=== PATIENT | female | born 1960 | race Caucasian/White ===

== ENCOUNTER 2019-01-03 00:55 | Inpatient (IN) | payer MEDICARE, MEDICAID ==
[2019-01-03] VITALS (11 sets, daily range): BP systolic 100–144; BP diastolic 57–95
[~2019-01-03] VITALS: Ht 170 cm; Wt 67.9 kg
--- NOTE | 2019-01-03 01:27 | ED Fall/Injury ---
General Stated Complaint: FALL Source: patient, EMS Exam Limitations: no limitations History of Present Illness Date Seen by Provider: Jan 03, 2019 Time Seen by Provider: 00:53 Initial Comments Patient resents to ER from home by EMS with chief complaint she was using her walker to get to the bathroom indurated bed when she has to balance and fell. No dizziness or syncope. No loss of consciousness. She denies striking her head. She has obvious inflammation of her right femur was put into a splint which controlled her pain by EMS. She has a history of right breast cancer 13 years ago and recently had left mastectomy for breast cancer and is on chemotherapy. She takes Plavix. Attend with [facility] and Dr. Polanco, oncology. Allergies and Home Medications Allergies Coded Allergies: No Known Drug Allergies (Unverified , 01/03/19) Patient Home Medication List Home Medication List Reviewed: Yes Review of Systems Review of Systems Constitutional: No chills, No diaphoresis Eyes: Denies Blindness, Denies Drainage Ears, Nose, Mouth, Throat: denies ear pain, denies ear discharge Respiratory: No cough, No short of breath Cardiovascular: No chest pain, No edema Gastrointestinal: No abdominal pain, No constipation, No diarrhea Genitourinary: No discharge, No dysuria Musculoskeletal: see HPI; No back pain Past Mtimpcn-Dtajgl-Dugfjd Hx Patient Social History Alcohol Use: Denies Use Recreational Drug Use: No Smoking Status: Current Everyday Smoker Type Used: Cigarettes Physical Exam Vital Signs Vital Signs - First Documented 01/03/19 00:55 Temp 35.3 Pulse 74 Resp 18 B/P (MAP) 122/91 (101) Capillary Refill : Height, Weight, BMI Height: '" Weight: lbs. oz. kg; BMI Method: General Appearance: moderate distress, thin HEENT: PERRL/EOMI, normal ENT inspection, TMs normal, pharynx normal Neck: non-tender, full range of motion, supple, normal inspection Cardiovascular: normal peripheral pulses, regular rate, rhythm, no edema Respiratory: lungs clear, normal breath sounds, no respiratory distress, no accessory muscle use Peripheral Pulses: 2+ Dorsalis Pedis (R), 2+ Left Dors-Pedis (L), 2+ Radial Pulses (R), 2+ Radial Pulses (L) Gastrointestinal: normal bowel sounds, non tender, soft Extremities: no pedal edema, normal capillary refill, other (traction device in place. Deformity palpable along the proximal shaft of the right femur) Neurologic/Psychiatric: alert, oriented x 3 Skin: normal color, warm/dry, ecchymosis (hematoma over the right elbow) Nader Coma Score Best Eye Response: (4) Open Spontaneously Best Verbal Response: (5) Oriented Best Motor Response: (6) Obeys Commands Nader Total: 15 Progress/Results/Core Measures Results/Orders Lab Results Laboratory Tests Test 01/03/19 01:00 01/03/19 03:15 Range/Units White Blood Count 3.6 L 4.3-11.0 10^3/uL Red Blood Count 3.71 L 4.35-5.85 10^6/uL Hemoglobin 12.1 11.5-16.0 G/DL Hematocrit 35 35-52 % Mean Corpuscular Volume 94 80-99 FL Mean Corpuscular Hemoglobin 33 25-34 PG Mean Corpuscular Hemoglobin Concent 35 32-36 G/DL Red Cell Distribution Width 16.9 H 10.0-14.5 % Platelet Count 179 130-400 10^3/uL Mean Platelet Volume 10.2 7.4-10.4 FL Neutrophils (%) (Auto) 27 L 42-75 % Lymphocytes (%) (Auto) 42 12-44 % Monocytes (%) (Auto) 26 H 0-12 % Eosinophils (%) (Auto) 2 0-10 % Basophils (%) (Auto) 3 0-10 % Neutrophils # (Auto) 1.0 L 1.8-7.8 X 10^3 Lymphocytes # (Auto) 1.5 1.0-4.0 X 10^3 Monocytes # (Auto) 0.9 0.0-1.0 X 10^3 Eosinophils # (Auto) 0.1 0.0-0.3 10^3/uL Basophils # (Auto) 0.1 0.0-0.1 10^3/uL Sodium Level 128 L 135-145 MMOL/L Potassium Level 4.4 3.6-5.0 MMOL/L Chloride Level 92 L 98-107 MMOL/L Carbon Dioxide Level 22 21-32 MMOL/L Anion Gap 14 5-14 MMOL/L Blood Urea Nitrogen 7 7-18 MG/DL Creatinine 0.61 0.60-1.30 MG/DL Estimat Glomerular Filtration Rate > 60 BUN/Creatinine Ratio 11 Glucose Level 86 70-105 MG/DL Calcium Level 8.9 8.5-10.1 MG/DL Corrected Calcium 8.6 8.5-10.1 MG/DL Total Bilirubin 0.2 0.1-1.0 MG/DL Aspartate Amino Transf (AST/SGOT) 41 H 5-34 U/L Alanine Aminotransferase (ALT/SGPT) 18 0-55 U/L Alkaline Phosphatase 79 40-136 U/L Total Protein 8.0 6.4-8.2 GM/DL Albumin 4.4 3.2-4.5 GM/DL Urine Color YELLOW Urine Clarity CLEAR Urine pH 5 5-9 Urine Specific [employer] 1.010 L 1.016-1.022 Urine Protein NEGATIVE NEGATIVE Urine Glucose (UA) NEGATIVE NEGATIVE Urine Ketones NEGATIVE NEGATIVE Urine Nitrite NEGATIVE NEGATIVE Urine Bilirubin NEGATIVE NEGATIVE Urine Urobilinogen NORMAL NORMAL MG/DL Urine Leukocyte Esterase NEGATIVE NEGATIVE Urine RBC (Auto) NEGATIVE NEGATIVE Urine RBC NONE /HPF Urine WBC NONE /HPF Urine Squamous Epithelial Cells NONE /HPF Urine Crystals NONE /LPF Urine Bacteria TRACE /HPF Urine Casts NONE /LPF Urine Mucus NEGATIVE /LPF Urine Culture Indicated NO My Orders Orders - SRIDHAR [place] Fentanyl Injection (Sublimaze Injection (01/03/19 01:30) Elbow, Right, 3 Views (01/03/19 01:19) Pelvis With Right Hip 2-3views (01/03/19 01:19) Ct Head/Cervical Spine Wo (01/03/19 01:19) Chest 1 View, Ap/Pa Only (01/03/19 01:19) Cbc With Automated Diff (01/03/19 01:19) Comprehensive Metabolic Panel (01/03/19 01:19) Ua Culture If Indicated (01/03/19 01:27) Catheter(Urinary) Insert & Ass 03,15 (01/03/19 01:27) Manual Differential (01/03/19 01:00) Ed Iv/Invasive Line Start (01/03/19 02:07) Ns Iv 1000 Ml (Sodium Chloride 0.9%) (01/03/19 02:07) Fentanyl Injection (Sublimaze Injection (01/03/19 03:45) Fentanyl Injection (Sublimaze Injection (01/03/19 03:43) Lactated Ringers (Lr 1000 Ml Iv Solution (01/03/19 04:15) Medications Given in ED Current Medications Medications Dose Ordered Sig/Michael Route Start Time Stop Time Status Last Admin Dose Admin Fentanyl Citrate 50 mcg ONCE ONCE IVP 01/03/19 01:30 01/03/19 01:32 DC 01/03/19 01:46 50 MCG Fentanyl Citrate 100 mcg ONCE ONCE IVP 01/03/19 03:45 01/03/19 03:46 DC 01/03/19 03:45 100 MCG Vital Signs/I&O 01/03/19 00:55 Temp 35.3 Pulse 74 Resp 18 B/P (MAP) 122/91 (101) Progress Progress Note : Time: 01:27 Progress Note Right hip x-ray, chest x-ray, EKG, blood work, urinalysis and 50 my grams of fentanyl for pain. CT of the head and neck. Initial ECG Impression Date: Jan 03, 2019 Diagnostic Imaging Diagonstic Imaging: CT Plain Films/CT/US/NM/MRI: c-spine, head Comments Cervical spondylosis without cervical fracture. No evidence of skull fracture or intracranial hemorrhage. Reviewed: Reviewed Night Vadim Study, Reviewed by Me Diagonstic Imaging: Xray Plain Films/CT/US/NM/MRI: chest (1v) Comments No acute osseous abnormality or acute cardiopulmonary process. Reviewed: Reviewed by Me Diagonstic Imaging: Xray Plain Films/CT/US/NM/MRI: pelvis, hip (r) Comments Comminuted mostly reapposed fracture of the proximal femoral shaft. Closed. Reviewed: Reviewed by Me Departure Communication (Admissions) Time/Spoke to Admitting Phy: 04:04 Discussed case lab imaging findings with Dr. Hess. She agrees to admit the patient. Time/Spoke to Consulting Phy: 03:45 Dr. Metcalf agrees to see the patient in the morning. He like her nothing by mouth. Admit to medicine. Impression Primary Impression: Fall Qualified Codes: W19.XXXA - Unspecified fall, initial encounter Additional Impression: Closed right femoral fracture Qualified Codes: S72.354A - Nondisplaced comminuted fracture of shaft of right femur, initial encounter for closed fracture Disposition: ADMITTED INPATIENT Condition: Stable Admissions Decision to Admit Reason: Admit from ER (General) Decision to Admit/Date: Jan 03, 2019 Time/Decision to Admit Time: 03:30 Departure-Patient Inst. Referrals: NO,LOCAL PHYSICIAN (PCP) Primary Care Physician SRIDHAR [place] Jan 03, 2019 01:27
[2019-01-03] MEDS ORDERED: fentaNYL INJECTION 100 MCG/2 ML AMP IVP ONE ×3 (01:30→17:30)
[2019-01-03 01:37] LABS: BASOPHILS # (AUTO) 0.1 10^3/uL (0.0-0.1); BASOPHILS % (AUTO) 3 % (0-10); EOSINOPHILS # (AUTO) 0.1 10^3/uL (0.0-0.3); EOSINOPHILS % (AUTO) 2 % (0-10); HEMATOCRIT 35 % (35-52); HEMOGLOBIN 12.1 G/DL (11.5-16.0); LYMPHOCYTES # (AUTO) 1.5 X 10^3 (1.0-4.0); LYMPHOCYTES % (AUTO) 42 % (12-44); MEAN CORPUSCULAR HEMOGLOBIN 33 PG (25-34); MEAN CORPUSCULAR HGB CONC 35 G/DL (32-36); MEAN CORPUSCULAR VOLUME 94 FL (80-99); MEAN PLATELET VOLUME 10.2 FL (7.4-10.4); MONOCYTES # (AUTO) 0.9 X 10^3 (0.0-1.0); MONOCYTES % (AUTO) 26 % (0-12); NEUTROPHILS % (AUTO) 27 % (42-75); PLATELET COUNT 179 10^3/uL (130-400); RED CELL DISTRIBUTION WIDTH 16.9 % (10.0-14.5); WHITE BLOOD COUNT 3.6 10^3/uL (4.3-11.0)
[2019-01-03 01:56] LABS: ALANINE AMINOTRANSFERASE 18 U/L (0-55); ALBUMIN 4.4 GM/DL (3.2-4.5); ALKALINE PHOSPHATASE 79 U/L (40-136); BILIRUBIN,TOTAL 0.2 MG/DL (0.1-1.0); BUN/CREATININE RATIO 11; CALCIUM 8.9 MG/DL (8.5-10.1); CARBON DIOXIDE 22 MMOL/L (21-32); CHLORIDE 92 MMOL/L (98-107); CREATININE SERUM 0.61 MG/DL (0.60-1.30); GFR ESTIMATED > 60; GLUCOSE 86 MG/DL (70-105); POTASSIUM 4.4 MMOL/L (3.6-5.0); SODIUM 128 MMOL/L (135-145)
[2019-01-03] MEDS ORDERED: NS IV 1000 ML 1,000 ML IV SCH (02:07)
[2019-01-03 03:24] LABS: BILIRUBIN,URINE NEGATIVE (NEGATIVE); CLARITY,URINE CLEAR; COLOR,URINE YELLOW; GLUCOSE, URINE (UA) NEGATIVE (NEGATIVE); KETONES,URINE NEGATIVE (NEGATIVE); LEUKOCYTE ESTERASE ,URINE NEGATIVE (NEGATIVE); NITRITE,URINE NEGATIVE (NEGATIVE); PH,URINE 5 (5-9); PROTEIN,URINE NEGATIVE (NEGATIVE); UROBILINOGEN,URINE NORMAL (NORMAL)
[2019-01-03 03:34] LABS: BACTERIA,URINE TRACE /HPF
[2019-01-03] MEDS ORDERED: fentaNYL INJECTION 100 MCG/2 ML AMP ONE ×2 (03:43→15:07)
[2019-01-03] MEDS ORDERED: LACTATED RINGERS 1,000 ML IV SCH (04:15)
[2019-01-03 04:43] LABS: BLAST CELLS 1 %; LYMPHOCYTES % (MANUAL) 43 %; MONOCYTES % (MANUAL) 27 %; NEUTROPHILS % (MANUAL) 30 %
--- NOTE | 2019-01-03 05:08 | NUR ---
"TOÑO VILLA admitted to room 408-1, with an admitting diagnosis of FALL|RIGHT FEMUR FRACTURE|HX L BREAST CA ON CHEMO, on 01/03/19 from ED via STRETCHER, accompanied by ED STAFF AND FAMILY MEMBER.TOÑO VILLA introduced to surroundings, call light, bed controls, phone, TV, temperature control, lights, meal times, smoking policy, visitor policy, side rail policy, bathrooms and showers. Patient Rights given to patient in the handbook.TOÑO VILLA verbalizes understanding that [facility] is not responsible for the loss or damage to any personal effects or valuables that are kept in the patients posession during their hospitalization."
[2019-01-03] MEDS ORDERED: fentaNYL INJECTION 100 MCG/2 ML AMP IV PRN (05:30)
[2019-01-03] MEDS ORDERED: ONDANSETRON 4 MG/2 ML (SDV) Z0FRAN IV PRN (05:30)
[2019-01-03] MEDS: fentaNYL INJECTION 100 MCG/2 ML AMP IV PRN ×4 (05:48→13:25)
[2019-01-03] MEDS: LACTATED RINGERS 1,000 ML IV SCH ×2 (05:49→18:47)
--- NOTE | 2019-01-03 06:46 | Diagnostic Imaging Report ---
PROCEDURE: CT head and CT cervical spine without contrast. TECHNIQUE: Multiple contiguous axial images were obtained through the brain and cervical spine without the use of intravenous contrast. Sagittal and coronal reformations through the cervical spine were then performed. Auto Exposure Controls were utilized during the CT exam to meet ALARA standards for radiation dose reduction. INDICATION: Fall, pain. FINDINGS: CT head: No abnormal extra-axial fluid collections, there is no intracerebral hemorrhage. No focal or generalized cerebral edema. No evidence for an elevation of the intracerebral pressures. No mass or mass effect. No sulcal effacement. No paranasal sinus air-fluid level. CT cervical spine: Degenerative changes to the discs, endplates and facets at the mid to lower cervical levels present, chronic. No listhesis or fracture. The vertebral statures unremarkable. No acute endplate irregularity. There are substantial atherosclerotic vascular calcifications of the visualized carotids and biapical interstitial disease of uncertain acuity. IMPRESSION: 1. CT head: No hemorrhage or fracture deformity. No acute-appearing abnormality. 2. CT cervical spine: Degenerative changes without fracture or traumatic malalignment. Extensive carotid atherosclerotic vascular calcifications and some biapical interstitial thickening in the visualized upper lobes. Dictated by: Dictated on workstation # [id number]
--- NOTE | 2019-01-03 07:12 | Diagnostic Imaging Report ---
INDICATION: Pain after a fall. EXAMINATION: Right elbow, 01/03/2019. FINDINGS: 3 views of the elbow. There is marked osteopenia. Nondisplaced fracture line could be difficult to visualize due to the osteopenia. No displaced fractures are seen. There are no dislocations. No significant joint effusion is seen. Nonspecific density adjacent just proximal to the lateral epicondyle likely focal spurring. IMPRESSION: 1. Chronic findings and osteopenia as above. No acute fractures identified. If pain persists, followup recommended. Dictated by: Dictated on workstation # [id number]
--- NOTE | 2019-01-03 07:26 | Diagnostic Imaging Report ---
INDICATION: Fall, pain. FINDINGS: There are some old appearing healed rib deformities on the right. No convincing evidence for an acute chest wall fracture. Lung showed prominence of the interstitial markings and symmetric air trapping on a chronic basis. No failure, effusion or pneumothorax. No free air beneath the diaphragms. IMPRESSION: No acute appearing chest pathology. Dictated by: Dictated on workstation # [id number]
--- NOTE | 2019-01-03 07:31 | Diagnostic Imaging Report ---
INDICATION: Fall. Headache with neck pain. Right leg pain EXAMINATION: Right hip dated 01/03/2019. findings: 3 views of the right hip. The hip joint space is somewhat obscured by overlying metallic object. No henrik dislocation is appreciated. There is an oblique fracture of the mid to proximal one third of the right femoral diaphysis. There is lateral displacement of the distal fracture fragment in relation to the proximal femur. The displacement is at least 1.4 cm. The hip joint space appears grossly unremarkable. There is atherosclerotic disease noted. There is nonspecific hyperdensity in the region of the lesser trochanter. Underlying bone lesion including a metastatic process is not excluded. Left hip is grossly intact. IMPRESSION: 1. Displaced fracture of the right femur as described. The entire distal fracture site is not included on this examination therefore limiting evaluation. 2. Sclerotic lesion is suspected in the region of the lesser trochanter with a metastatic process not excluded. Further imaging may be warranted. Dictated by: Dictated on workstation # [id number]
[2019-01-03] MEDS: PANTOPRAZOLE 40 MG (PROTONIX) VIAL IV SCH (08:19)
[2019-01-03] MEDS ORDERED: LACTATED RINGERS 1,000 ML IV PRN (10:09)
[2019-01-03] MEDS ORDERED: RT-ALBUTEROL SULF 2.5 MG/3 ML PRE-MIX VIAL INH ONE (10:15)
[2019-01-03] MEDS ORDERED: PALB125C PO (10:56)
[2019-01-03] MEDS ORDERED: LEVE500T6 PO (10:56)
[2019-01-03] MEDS ORDERED: NF-NACL1GT PO (10:56)
[2019-01-03] MEDS ORDERED: MELA5CAP PO (10:56)
[2019-01-03] MEDS ORDERED: MV-M1TAB57 PO (10:56)
[2019-01-03] MEDS ORDERED: CLOP75TA28 PO (10:56)
[2019-01-03] MEDS ORDERED: FULV250D2 IM (10:56)
[2019-01-03] MEDS ORDERED: ASPI-983 PO (10:56)
[2019-01-03] MEDS ORDERED: PEDI18TA2 PO (10:56)
[2019-01-03] MEDS ORDERED: FURO20TA4 PO (10:56)
--- NOTE | 2019-01-03 10:57 | NUR ---
PATIENT HAD A LIST OF HER MEDICATIONS IN HER WALLET. SHE VERIFIED HOW SHE TAKES THEM. I COMPARED THE PRESCRIPTION MEDICATION WITH THE EXT MED HX. SHE STATES HER IBRANCE IS ON HOLD RIGHT NOW UNTIL SHE IS TOLD OTHERWISE AFTER BLOOD WORK.
--- NOTE | 2019-01-03 12:26 | History & Physical ---
DEBORAH CISNEROS, 01/03/19 1226: HPI History of Present Illness: CC: R leg pain HPI: Pt was walking into her apartment and fell. Denies an event that made her fall or tripping over anything. She does state she has bone metastasis from breast cancer in her leg. Rates her pain 10/10 on R leg. Ache radiates into her R hip. Pain meds help a bit. Also states she hit elbow, but denies hitting head. Surgery for femur fracture will be today at 5pm. Son is DPOA. Source: patient Exam Limitations: no limitations Date seen by provider: Jan 03, 2019 Time Seen by Provider: 08:02 Attending Physician Keeley Fleming MD PCP No,Local Physician Consult Date of Admission Jan 03, 2019 at 04:15 Home Medications Home Medications Reviewed patient Home Medication Reconciliation performed by pharmacy medication reconciliations photographic technician and/or nursing. Patients Allergies have been reviewed. Allergies Coded Allergies: No Known Drug Allergies (Unverified , 01/03/19) [id number] Hx Patient Social History Alcohol Use: Regular Use (2-3 cans of beer nightly) Recreational Drug Use: No Smoking Status: Current Everyday Smoker Type Used: Cigarettes Recent Foreign Travel: No Contact w/other who traveled: No Recent Hopitalizations: No Recent Infectious Disease Expo: No Physical Abuse Screen: No Sexual Abuse: No Past Medical History PMHx: 1. Oral cancer 2. Breast cancer 3. Hx of TIA after chemotherapy 4. CKD PSHx: 1. R mastectomy 13 years ago 2. L mastectomy in 2016 3. L cervical rib 4. Tubal ligation 5. Cyst removal on back Family Medical History Significant Family History: Heart Disease (almost everyone has hypercholesterolemia), Cancer (sister had oral cancer 13 years ago), Hypertension (almost everyone in family), Other Conditions/Hx (mother had Parkinson's) Review of Systems ([facility]) Constitutional: No chills, No fever, No weight gain, No weight loss EENTM: No hearing loss, No vision loss, No throat pain Respiratory: No cough, No short of breath Cardiovascular: No chest pain, No palpitations Gastrointestinal: No abdominal pain; dysphagia (from oral cancer tx); No nausea, No vomiting Genitourinary: No dysuria, No frequency, No hematuria Musculoskeletal: No back pain, No joint pain, No muscle stiffness; other (sore from laying in bed) Skin: No lesions, No rash Psychiatric/Neurological: Denies Anxiety, Denies Depressed, Denies Numbness, Denies Tingling Physical Exam-([facility]) Physical Exam Vital Signs VS - Last 72 Hours, by Label 01/03/19 01/03/19 01/03/19 01/03/19 00:55 04:00 04:51 05:08 Temp 35.3 35.3 Pulse 74 73 Resp 18 19 B/P (MAP) 122/91 (101) 100/75 (101) Pulse Ox 100 100 O2 Delivery Nasal Cannula Nasal Cannula Nasal Cannula O2 Flow Rate 2.00 2.00 2.00 01/03/19 01/03/19 01/03/19 06:20 07:35 08:00 Temp 36.3 Pulse 80 73 Resp 18 16 B/P (MAP) 109/65 100/57 (71) Pulse Ox 98 98 98 O2 Delivery Nasal Cannula Room Air Room Air O2 Flow Rate 2.00 Capillary Refill : Less Than 3 SecondsLess Than 3 Seconds General Appearance: WD/WN, no apparent distress Eyes: Bilateral Eye Normal Inspection, Bilateral Eye EOMI HEENT: pharynx normal; No pale conjunctivae (R), No pale conjunctivae (L) Neck: non-tender, supple Respiratory: chest non-tender, crackles Cardiovascular: regular rate, rhythm, no murmur Gastrointestinal: normal bowel sounds, non tender Extremities: normal inspection, no pedal edema Neurologic/Psychiatric: alert, oriented x 3 Skin: normal color, warm/dry, other (large bruise on R elbow) Lymphatic: no adenopathy Assessment/Plan Assessment/Plan Assessment & Plan Assessment: 1. Right femur fracture 2. DVT risk 3. Hx of TIA Plan: 1. Surgery at 5pm tonight. Control pain with IV pain medications. Keep pt NPO. Allow pt to use oral swabs to keep mouth damp. 2. Postoperative anticoagulation 3. Home medications restarted postoperatively Clinical Quality Measures DVT/VTE Risk/Contraindication: Risk Factor Score Per Nursin RFS Level Per Nursing on Admit: 4+=Very High KEELEY FLEMING MD 01/03/19 1725: HPI History of Present Illness: Date seen by provider: Jan 03, 2019 Time Seen by Provider: 10:28 Home Medications Allergies Coded Allergies: No Known Drug Allergies (Unverified , 9/30/19) Reviewed Test Results Reviewed Test Results Lab Laboratory Tests Test 01/03/19 01:00 01/03/19 03:15 Range/Units White Blood Count 3.6 L 4.3-11.0 10^3/uL Red Blood Count 3.71 L 4.35-5.85 10^6/uL Hemoglobin 12.1 11.5-16.0 G/DL Hematocrit 35 35-52 % Mean Corpuscular Volume 94 80-99 FL Mean Corpuscular Hemoglobin 33 25-34 PG Mean Corpuscular Hemoglobin Concent 35 32-36 G/DL Red Cell Distribution Width 16.9 H 10.0-14.5 % Platelet Count 179 130-400 10^3/uL Mean Platelet Volume 10.2 7.4-10.4 FL Neutrophils (%) (Auto) 27 L 42-75 % Lymphocytes (%) (Auto) 42 12-44 % Monocytes (%) (Auto) 26 H 0-12 % Eosinophils (%) (Auto) 2 0-10 % Basophils (%) (Auto) 3 0-10 % Neutrophils # (Auto) 1.0 L 1.8-7.8 X 10^3 Lymphocytes # (Auto) 1.5 1.0-4.0 X 10^3 Monocytes # (Auto) 0.9 0.0-1.0 X 10^3 Eosinophils # (Auto) 0.1 0.0-0.3 10^3/uL Basophils # (Auto) 0.1 0.0-0.1 10^3/uL Neutrophils % (Manual) 30 % Lymphocytes % (Manual) 43 % Monocytes % (Manual) 27 % Blast Cells 1 % Sodium Level 128 L 135-145 MMOL/L Potassium Level 4.4 3.6-5.0 MMOL/L Chloride Level 92 L 98-107 MMOL/L Carbon Dioxide Level 22 21-32 MMOL/L Anion Gap 14 5-14 MMOL/L Blood Urea Nitrogen 7 7-18 MG/DL Creatinine 0.61 0.60-1.30 MG/DL Estimat Glomerular Filtration Rate > 60 BUN/Creatinine Ratio 11 Glucose Level 86 70-105 MG/DL Calcium Level 8.9 8.5-10.1 MG/DL Corrected Calcium 8.6 8.5-10.1 MG/DL Total Bilirubin 0.2 0.1-1.0 MG/DL Aspartate Amino Transf (AST/SGOT) 41 H 5-34 U/L Alanine Aminotransferase (ALT/SGPT) 18 0-55 U/L Alkaline Phosphatase 79 40-136 U/L Total Protein 8.0 6.4-8.2 GM/DL Albumin 4.4 3.2-4.5 GM/DL Urine Color YELLOW Urine Clarity CLEAR Urine pH 5 5-9 Urine Specific [place] 1.010 L 1.016-1.022 Urine Protein NEGATIVE NEGATIVE Urine Glucose (UA) NEGATIVE NEGATIVE Urine Ketones NEGATIVE NEGATIVE Urine Nitrite NEGATIVE NEGATIVE Urine Bilirubin NEGATIVE NEGATIVE Urine Urobilinogen NORMAL NORMAL MG/DL Urine Leukocyte Esterase NEGATIVE NEGATIVE Urine RBC (Auto) NEGATIVE NEGATIVE Urine RBC NONE /HPF Urine WBC NONE /HPF Urine Squamous Epithelial Cells NONE /HPF Urine Crystals NONE /LPF Urine Bacteria TRACE /HPF Urine Casts NONE /LPF Urine Mucus NEGATIVE /LPF Urine Culture Indicated NO Physical Exam-([facility]) Physical Exam General Appearance: WD/WN Eyes: Bilateral Eye Normal Inspection HEENT: pale conjunctivae (L) Respiratory: crackles Cardiovascular: regular rate, rhythm, no murmur Peripheral Pulses: 2+ Dorsalis Pedis (R), 2+ Left Dors-Pedis (L) Gastrointestinal: normal bowel sounds, non tender Extremities: no pedal edema, other (right leg in brace) Neurologic/Psychiatric: alert, normal mood/affect Skin: normal color, warm/dry Assessment/Plan Assessment/Plan Admission Status: Inpatient Order (span 2 midnights) Reason for Inpatient Admission: Fracture with underlying comorbidities, will require 2 nights or more for recovery. (1) Closed right femoral fracture Status: Acute Assessment & Plan: Pathologic fracture, history suggests fracture may have preceded fall. Ortho consulted, appreciate recommendations. Qualifiers: Qualified Codes: S72.354A - Nondisplaced comminuted fracture of shaft of right femur, initial encounter for closed fracture (2) Metastatic breast cancer Status: Chronic Assessment & Plan: Managed by Oncologist in [place], but she is working on transitioning to [place] to decrease travel. Reports she has appointment coming up with Rad Onc here and was going to be seeing Dr. Bah as well. Current oral med on hold while waiting on lab follow-up per her report. (3) Fall Status: Acute Assessment & Plan: PT after surgery. Qualifiers: Qualified Codes: W19.XXXA - Unspecified fall, initial encounter (4) Hyponatremia Assessment & Plan: Suspect chronic given on home sodium. Monitor. (5) Leukopenia Assessment & Plan: Possibly secondary to her breast cancer treatment, monitor. (6) Elevated AST (SGOT) Assessment & Plan: Possibly secondary to breast cancer treatment versus alcohol use as she does report slightly higher than recommended intake on a regular basis. Monitor. (7) DVT prophylaxis Status: Acute Assessment & Plan: High risk for DVT, start prophylaxis as soon as safe after surgery. Supervisory-Addendum Brief Verification & Attestation Participated in pt care: history, MDM, physical Personally performed: exam, history, MDM, supervision of care Care discussed with: Medical Student Procedures: n/a Verification and Attestation of Medical Student E/M Service A medical student performed and documented this service in my presence. I reviewed and verified all information documented by the medical student and made modifications to such information, when appropriate. I personally performed the physical exam and medical decision making. See my notes for my physical exam and problem list for my assessment and plan. Keeley Fleming, Jan 03, 2019,17:28 DEBORAH CISNEROS, Jan 03, 2019 12:26 KEELEY FLEMING MD Jan 03, 2019 17:25
--- NOTE | 2019-01-03 12:26 | Diagnostic Imaging Report ---
EXAMINATION: Right femur at 11:44 a.m. INDICATION: Leg pain. AP and lateral views were obtained. There are no prior studies available for comparison. FINDINGS: There is a comminuted displaced fracture of the proximal femoral shaft. The distal fracture fragment is displaced laterally and anteriorly by half the width of the femoral shaft. No other fracture or acute bony abnormality is identified. There is moderate degenerative disease of the hip and knee joints. Also, the osseous structures do seem demineralized. The soft tissues are unremarkable. IMPRESSION: 1. There is a comminuted displaced fracture of the proximal femur. There is no acute bony abnormality noted otherwise. 2. The osseous structures do appear to be demineralized. Dictated by: Dictated on workstation # [id number]
[2019-01-03] MEDS ORDERED: NON-FORMULARY MEDICATION 1 EA EA (Melatonin 5 MG) PO PRN (13:30)
--- NOTE | 2019-01-03 14:57 | NUR ---
Pastoral care visit.
[2019-01-03] MEDS ORDERED: ONDANSETRON 4 MG/2 ML (SDV) Z0FRAN ONE (15:07)
[2019-01-03] MEDS ORDERED: LIDOCAINE PF 2% 5 ML (XYLOCAINE) VIAL ONE (15:07)
[2019-01-03] MEDS ORDERED: proPOfol 200 MG/20 ML (DIPRIVAN) VIAL IV ONE (15:07)
[2019-01-03] MEDS ORDERED: MIDAZOLAM 2 MG/2 ML (VERSED) VIAL ONE (15:14)
[2019-01-03] MEDS ORDERED: SEVOFLURANE (ULTANE) 15 ML INHAL SOLN ONE ×4 (15:14→17:00)
--- NOTE | 2019-01-03 15:37 | Consultation ---
History of Present Illness History of Present Illness Patient Consulted On(silvia/time) 01/03/19 15:33 Date Seen by Provider: Jan 03, 2019 Time Seen by Provider: 15:33 Reason for Visit: right hip fracture History of Present Illness Ms. Veras is a 58 yo FM with known metastatic CA that presented with a displaced right subtrochanteric hip fracture after she stumbled in her home last night. She also has elbow pain but XR was negative. She denies N/V/CP/Dizzyness prior to the fall. She had know metastatic lesions in her proximal femur and knee that were being treated with radiation. Allergies and Home Medications Allergies Coded Allergies: No Known Drug Allergies (Unverified , 01/03/19) Home Medications Aspirin 81 Mg Tablet.dr, 81 MG PO DAILY, (Reported) Clopidogrel Bisulfate 75 Mg Tablet, 75 MG PO DAILY, (Reported) Fulvestrant 250 Mg/5 Ml Syringe, IM MONTHLY, (Reported) Furosemide 20 Mg Tablet, 20 MG PO DAILY, (Reported) Levetiracetam 500 Mg Tablet, 500 MG PO BID, (Reported) Melatonin 5 Mg Capsule, 5 MG PO HS PRN for SLEEP, (Reported) Mv-Mn/Folic Acid/Calcium/Vit K 1 Each Tablet, 1 TAB PO DAILY, (Reported) Palbociclib 125 Mg Capsule, 125 MG PO UD, (Reported) TAKES ONCE DAILY X 3 WEEKS THEN OFF 1 WEEK THEN REPEAT CURRENTLY ON HOLD Pedi Mv No.79/Ferrous Fumarate 18 Mg Tab.chew, 18 MG PO DAILY, (Reported) Sodium Chloride 1 Gm Tab, 2 GM PO BID, (Reported) TAKES 2 (1GM) TABLETS Patient Home Medication List Home Medication List Reviewed: Yes Past Ntldtbz-Lwamrq-Gkylyj Hx Patient Social History Alcohol Use: Regular Use (2-3 cans of beer nightly) Number of Drinks Today: AA Alcohol Beverage of Choice: Beer Recreational Drug Use: No Smoking Status: Current Everyday Smoker Type Used: Cigarettes Recent Foreign Travel: No Contact w/Someone Who Travel: No Recent Infectious Disease Expo: No Recent Hopitalizations: No Physical Abuse: No Sexual Abuse: No Mistreated: No Fear: No Seasonal Allergies Seasonal Allergies: No Past Medical History Appendectomy, Tubal Ligation Respiratory: No Cardiac: No Neurological: Yes TIA Genitourinary: No Gastrointestinal: No Musculoskeletal: No Endocrine: No HEENT: No Cancer: Yes Bone, Breast Psychosocial: No Integumentary: No Blood Disorders: No Family Medical History Heart Disease (almost everyone has hypercholesterolemia), Cancer (sister had oral cancer 13 years ago), Hypertension (almost everyone in family), Other Conditions/Hx (mother had Parkinson's) Review of Systems-General Constitutional: no symptoms reported Physical Exam-General Problems Physical Exam Vital Signs Vital Signs - First Documented 01/03/19 01/03/19 01/03/19 00:55 04:00 04:51 Temp 35.3 Pulse 74 Resp 18 B/P (MAP) 122/91 (101) Pulse Ox 100 O2 Delivery Nasal Cannula O2 Flow Rate 2.00 Capillary Refill : Less Than 3 SecondsLess Than 3 Seconds General Appearance: no apparent distress Extremities: other (RLE: obvious deformity and swelling, pain limited ROM, skin intact, NVSI) Assessment/Plan Assessment/Plan Admission Diagnosis/Plan ASSESSMENT: R subtrochanteric hip fracture PLAN: OR today post op DVT prophy WBAT will be the plan Admission Status: Inpatient Order (span 2 midnights) Clinical Quality Measures DVT/VTE Risk/Contraindication: Risk Factor Score Per Nursin RFS Level Per Nursing on Admit: 4+=Very High BERTA NAIR DO Jan 03, 2019 15:37
[2019-01-03] MEDS ORDERED: ceFAZolin INJECTION 2,000 MG ONE (16:00)
[2019-01-03] MEDS ORDERED: morphine INJ 10 MG/ML 1ML (SYR OR VIAL) ONE (16:09)
[2019-01-03] MEDS ORDERED: ceFAZolin 2 GM/50 ML NS 50 ML IV NR (17:00)
[2019-01-03] MEDS ORDERED: morphine INJ 10 MG/ML 1ML (SYR OR VIAL) IVP ONE (17:30)
[2019-01-03] MEDS ORDERED: MEPERIDINE (DEMEROL) INJ 50 MG/ML IVP ONE (17:30)
[2019-01-03] MEDS ORDERED: PROMETHAZINE INJ 25 MG/ML (PHENERGAN) AMP IVP ONE (17:30)
[2019-01-03] MEDS ORDERED: ONDANSETRON 4 MG/2 ML (SDV) Z0FRAN IVP PRN (17:30)
--- NOTE | 2019-01-03 18:22 | Diagnostic Imaging Report ---
INDICATION: Right femoral nailing IMPRESSION: 2 minutes and 14 seconds of fluoroscopy was used for the right femoral nailing. There is excellent alignment of the fracture of the proximal shaft. Dictated by: Dictated on workstation # [id number]
[2019-01-03] MEDS ORDERED: NON-FORMULARY MEDICATION 1 EA EA (Levetiracetam 500 MG) PO SCH (21:00)
[2019-01-03] MEDS ORDERED: ceFAZolin 2 GM IV Premixed 50 ML IV SCH (22:00)
[2019-01-03] MEDS: LEVETIRACETAM 500 MG (KEPPRA) TAB PO SCH (22:09)
[2019-01-03] MEDS: SODIUM CHLORIDE 1 GM TAB (NON-FORMULARY) PO SCH (22:10)
[2019-01-03] MEDS: HYDROcodone/APAP 7.5 MG/325 MG (LORTAB, LORCET PLUS) TABLET PO PRN (22:10)
[2019-01-03] MEDS: ENOXAPARIN 30 MG/0.3 ML (LOVENOX) SYR SC SCH (22:11)
[2019-01-04] VITALS: BP 91/61
[2019-01-04] MEDS: HYDROcodone/APAP 7.5 MG/325 MG (LORTAB, LORCET PLUS) TABLET PO PRN ×5 (02:09→20:40)
--- NOTE | 2019-01-04 02:36 | OPERATIVE REPORT ---
DATE OF SERVICE: 01/03/2019 SURGEON: Berta Metcalf DO DIAL LATHE OPERATOR: JUAN Pacheco. This is a medically necessary procedure. Air Hole Driller was necessary for retraction of vital neurovascular structures. Without an administrative library assistant, the procedure would not be possible. PREOPERATIVE DIAGNOSES: 1. Pathologic displaced right subtrochanteric femoral shaft fracture. 2. Metastatic breast cancer. POSTOPERATIVE DIAGNOSES: 1. Pathologic displaced right subtrochanteric femoral shaft fracture. 2. Metastatic breast cancer. PROCEDURE PERFORMED: Placement of an intramedullary nail, right femur. COMPLICATIONS: None. SPECIMEN SENT: None. DRAINS PLACED: None. ESTIMATED BLOOD LOSS: Minimal. ANESTHESIA: General endotracheal tube anesthesia with local anesthetic. HISTORY OF PRESENT ILLNESS: The patient is a very pleasant 58-year-old female with a known history of metastatic breast cancer. She had a known lesion in her right hip, which did result in a pathologic displaced hip fracture this morning after she stumbled and fell. She reported to the ER where x-rays were taken demonstrating extraarticular subtrochanteric displaced femoral shaft fracture. She wished to proceed with operative intervention to mobilize her. DESCRIPTION OF PROCEDURE: The patient was identified by name on wrist band in the preoperative holding area. Her operative site was signed, consent was signed. SCDs were placed. Antibiotics were started. She was taken to the operating room theater and placed under general endotracheal tube anesthesia and transferred to the operating room table in the supine position. Her unaffected left lower extremity was abducted and externally rotated. Her right lower extremity was placed in traction and the fracture was reduced on AP and lateral x-ray. At this point, we prepped and draped the patient in the usual sterile fashion. I then made an incision over the lateral aspect of the greater trochanter. I advanced a wire into the piriformis fossa. I then used the starting reamer to gain access to the intramedullary canal. I passed a ball tipped wire all the way into the intramedullary canal across the distal fragment and down to the knee. AP and lateral x-ray proved that I was in the intramedullary canal; therefore, I reamed up to the appropriate caliber reamer and I passed a long Synthes trochanteric fixation nail across the fracture to just proximal to the knee. At this point, I placed a helical blade through the lateral cortex through the nail and into the femoral head. I locked this to rotation. I then removed the aiming arm apparatus and using perfect soboba technique, I placed screw through the lateral cortex, the distal nail and the medial cortex. Final AP and lateral x-ray demonstrated appropriate position of all hardware. At this point, I irrigated both wounds, closed utilizing 0 Vicryls followed by 2-0 Vicryls, followed by leonor for skin. I applied dressings and took the patient in the supine position to the PACU where she awoke without incident. She tolerated the procedure well. PLAN: At this time is to admit the patient for IV antibiotics, IV pain control and postoperative monitoring. I am going to defer her to medicine for treatment for other medical issues, we will probably start her on Lovenox for DVT prophylaxis and have her weightbearing as tolerated. Please note that instrumentation utilized was Synthes long trochanteric fixation nail. Job ID: [id number] DocumentID: [id number] Dictated Date: 01/03/2019 17:06:51 System Validation Engineer Date: 01/04/2019 02:35:34 Dictated By: BERTA METCALF DO
[2019-01-04 04:00] VITALS: BP 102/62
[2019-01-04] MEDS: LACTATED RINGERS 1,000 ML IV SCH ×2 (05:35→15:29)
[2019-01-04 06:18] LABS: HEMOGLOBIN 8.4 G/DL (11.5-16.0); MEAN PLATELET VOLUME 10.6 FL (7.4-10.4); RED CELL DISTRIBUTION WIDTH 16.1 % (10.0-14.5); WHITE BLOOD COUNT 4.1 10^3/uL (4.3-11.0)
--- NOTE | 2019-01-04 06:21 | Progress Note ---
Subjective Date Seen by a Provider: Jan 04, 2019 Time Seen by a Provider: 06:17 Subjective/Events-last exam POD #1, s/p Right hip TFN, for pathologic femoral fx. No complaints. Review of Systems General: No Chills Cardiovascular: No: Chest Pain Gastrointestinal: No: Nausea, Vomiting, Abdominal Pain Musculoskeletal: leg pain Neurological: No: Weakness Objective Exam Vital Signs Date Time Temp Pulse Resp B/P (MAP) Pulse Ox O2 Delivery O2 Flow Rate FiO2 01/04/19 04:00 36.8 75 16 102/62 (75) 94 Room Air 01/04/19 02:53 98 Room Air 01/04/19 00:00 36.6 92 16 91/61 (71) 96 Room Air 01/03/19 20:46 100 Nasal Cannula 2.00 01/03/19 20:00 Nasal Cannula 2.00 01/03/19 19:15 37.0 110 20 119/76 (90) 99 Room Air 01/03/19 18:20 Nasal Cannula 3 01/03/19 18:20 36.6 95 20 103/58 (73) 97 Room Air 01/03/19 18:10 Nasal Cannula 3 01/03/19 18:10 36.8 16 117/69 (85) 98 Nasal Cannula 3 01/03/19 18:00 Nasal Cannula 3 01/03/19 18:00 20 121/74 (90) 100 OxyMask 3 01/03/19 17:50 16 128/71 (90) 100 OxyMask 10 01/03/19 17:45 OxyMask 3 01/03/19 17:40 16 123/78 (93) 99 10 01/03/19 17:30 OxyMask 10 01/03/19 17:30 16 129/89 (102) 100 OxyMask 10 01/03/19 17:18 OxyMask 10 01/03/19 17:18 36.6 16 144/95 (111) 100 OxyMask 10 01/03/19 14:27 99 Nasal Cannula 2.00 01/03/19 12:00 36.8 87 20 141/73 (95) 100 Room Air 01/03/19 08:00 36.3 73 16 100/57 (71) 98 Room Air 01/03/19 08:00 Nasal Cannula 2.00 01/03/19 07:35 80 18 109/65 98 Room Air 01/03/19 06:20 98 Nasal Cannula 2.00 I & O 01/04/19 07:00 Intake Total 300 ml Output Total 1125 ml Balance -825 ml Capillary Refill : Less Than 3 SecondsLess Than 3 Seconds General Appearance: No Apparent Distress Neck: Full Range of Motion Respiratory: No Respiratory Distress Cardiovascular: No Edema, Normal Peripheral Pulses Gastrointestinal: soft Extremity: No Calf Tenderness, Other (MOTOR and NVI in RLE ) Neurologic/Psychiatric: Alert, Oriented x3, No Motor/Sensory Deficits, Normal Mood/Affect, extrusion engineer II-XII Norm as Tested Skin: Other (Moderate bandage saturation. No significant swelling. ) Results Lab Laboratory Tests 01/04/19 05:47: Assessment/Plan Assessment/Plan Assess & Plan/Chief Complaint Right femoral pathologic fracture S/P right hip TFN Weight bearing as tolerated F/U with Dr. Metcalf in 2 weeks for post-operative visit. Clinical Quality Measures DVT/VTE Risk/Contraindication: Risk Factor Score Per Nursin RFS Level Per Nursing on Admit: 4+=Very High SERG HURD Jan 04, 2019 06:21
[2019-01-04 06:37] LABS: ALANINE AMINOTRANSFERASE 10 U/L (0-55); ALBUMIN 3.6 GM/DL (3.2-4.5); ALKALINE PHOSPHATASE 68 U/L (40-136); BILIRUBIN,TOTAL 0.4 MG/DL (0.1-1.0); BUN/CREATININE RATIO 9; CALCIUM 8.5 MG/DL (8.5-10.1); CARBON DIOXIDE 23 MMOL/L (21-32); CHLORIDE 97 MMOL/L (98-107); CREATININE SERUM 0.55 MG/DL (0.60-1.30); GFR ESTIMATED > 60; GLUCOSE 129 MG/DL (70-105); POTASSIUM 4.2 MMOL/L (3.6-5.0); SODIUM 131 MMOL/L (135-145); TOTAL PROTEIN 5.7 GM/DL (6.4-8.2)
--- NOTE | 2019-01-04 07:15 | NUR ---
[facility] CATH D/C'D. URINE CLEAR AND PALE YELLOW. PT TOLERATED WELL.
[2019-01-04 08:00] VITALS: BP 102/64
[2019-01-04] MEDS: FUROSEMIDE 20 MG (LASIX) TAB PO SCH (08:58)
[2019-01-04] MEDS: ENOXAPARIN 30 MG/0.3 ML (LOVENOX) SYR SC SCH ×2 (08:58→20:40)
[2019-01-04] MEDS: LEVETIRACETAM 500 MG (KEPPRA) TAB PO SCH ×2 (08:58→20:40)
[2019-01-04] MEDS: MULTIVIT W/MINERALS TAB (THERAGRAN M) PO SCH (08:59)
[2019-01-04] MEDS ORDERED: NON-FORMULARY MEDICATION 1 EA EA (Pedi Mv No.79/Ferrous Fumarate (Flintstones with Iron Ta PO SCH (09:00)
[2019-01-04] MEDS ORDERED: NON-FORMULARY MEDICATION 1 EA EA (Mv-Mn/Folic Acid/Calcium/Vit K (Women's 50 Plus Multivit PO SCH (09:00)
[2019-01-04] MEDS: SODIUM CHLORIDE 1 GM TAB (NON-FORMULARY) PO SCH ×2 (09:00→20:39)
[2019-01-04] MEDS: PANTOPRAZOLE 40 MG (PROTONIX) VIAL IV SCH (09:01)
--- NOTE | 2019-01-04 09:06 | NUR ---
Robin lives alone in [facility]. She has a son who lives locally who assists her and a neighbor who assists her intermittently.Will follow for any continued care needs.
--- NOTE | 2019-01-04 09:59 | Physical Therapy Evaluation ---
PT Evaluation-General Medical Diagnosis Admission Date Jan 03, 2019 at 04:15 Medical Diagnosis: right femur fracture Onset Date: Jan 03, 2009 Therapy Diagnosis Therapy Diagnosis: debility/weakness Precautions Precautions/Isolations: Standard Precautions Weight Bear Status Right Lower Extremity: Right Weight Bearing/Tolerated Left Lower Extremity: Left Weight Bearing/Tolerated Referral Physician: Frankie Reason for Referral: Evaluation/Treatment Medical History Pertinent Medical History: Alcoholism, Smoking Additional Medical History metastatic breast cancer to bone (right femur per report) Current History EMS secondary to fall at home Reviewed History: Yes Social History Home: Apartment Current Living Status: Alone Entry Into Home: Level Entry Prior/Core FIM Prior Level of Function Therapy Code Descriptions/Definitions Functional [employer] Measure: 0=Not Assessed/NA 4=Minimal Assistance 1=Total Assistance 5=Supervision or Setup 2=Maximal Assistance 6=Modified [employer] 3=Moderate Assistance 7=Complete [employer] Therapy Quality Codes: 6 Independent with activity with or without an assistive device 5 Patient requires set up or clean up by helper. Patient completes activity by themselves 4 Supervision or touching assist (CGA). [place] provide cues , steadying assist 3 The helper provides less than half the effort to complete the activity 2 The helper provides more than half the effort to complete the activity 1 Dependent. The helper does all the effort to complete an activity 7 Patient refused to complete or attempt activity 9 The patient did not perform the activity before the current illness or injury 88 Not attempted due to Medical conditions or safety concerns Functional Abilities and Goals: Independent: Patient completed the activities by him/herself, with or without an assistive device, with no assistance from a helper. Needed Some Help: Patient needed partial assistance from another person to complete activities. Dependent: A helper completed the activities for the patient. Unknown: Not Applicable: Bed Mobility: 6 Transfers (B,C,W/C) (FIM): 6 Gait: 6 Stairs: 0 Indoor Mobility (Ambulation): Independent Prior Devices Use: Walker PT Evaluation-Current Subjective Patient is very agreeable to participate with PT. Pain Numeric Pain Scale: 5-Moderate Pain Location: Right Location Body Site: Thigh Pain Description: Acute Objective Patient Orientation: Normal For Age Problem Solving: Good Attachments: IV ROM/Strength ROM Lower Extremities left LE WFL/right LE limited due to pain with knee flexion Strength Lower Extremities left LE 4/5 grossly/right LE 3/5 grossly Integumentary/Posture Integumentary refer to nursing notes Bowel Incontinence: No Bladder Incontinence: No Posture WFL Neuromuscular (Tone, Coordination, Reflexes) grossly intact Sensory Vision: Wears Glasses Hearing: Functional Sensation Right Lower Extremit: Intact Sensation Left Lower Extremity: Intact Transfers Therapy Code Descriptions/Definitions Functional [employer] Measure: 0=Not Assessed/NA 4=Minimal Assistance 1=Total Assistance 5=Supervision or Setup 2=Maximal Assistance 6=Modified [employer] 3=Moderate Assistance 7=Complete [employer] Transfers (B, C, W/C) (FIM): 5 Scootin Rollin Supine to/from Sit: 5 Sit to/from Stand: 5 Gait Mode of Locomotion: Walk Anticipated Mode of Locomotion: Walk Gait (FIM): 5 Distance (FIM): 3=150 ft Distance: 225' Gait Level of Assist: 5 Gait Assistive Device: FWW Comments/Gait Description slow, reciprocal pattern with FWW Balance Sitting Static: Normal Sitting Dynamic: Normal Standing Static: Normal Standing Dynamic: Normal Assessment/Needs 58 y.o. female, will benefit from skilled PT to address functional strength and mobility to improve current LOF. Patient reports she plans to dismiss to home with home health. Rehab Potential: Guarded Post Rehab Potential-Barriers: metastatic cancer PT Care Home Goals Care Home Goals PT Care Home Goals Time Frame: Jan 11, 2019 Transfers (B,C,W/C) (FIM): 6 Gait (FIM): 6 Gait distance (FIM): 3=150 ft Distance: 275' Gait Level of Assist: 6 Gait Assistive Device: FWW PT Plan Treatment/Plan Treatment Plan: Continue Plan of Care Treatment Plan: Bed Mobility, Education, Functional Activity Elia, Functional Strength, Gait, Safety, Therapeutic Exercise, Transfers Treatment Duration: Jan 11, 2019 Frequency: 11 times per week Estimated Hrs Per Day: .5 hour per day Patient and/or Family Agrees t: Yes Discharge Recommendations Therapy Discharge Recommendati: Post Acute PT (home health to ensure safe return to home environment) Time/GCodes Time In: 810 Time Out: 838 Total Billed Treatment Time: 28 Total Billed Treatment 1 visit EVGilbertC 16 min GT 12 min SANJUANA ZULUAGA PT Jan 04, 2019 09:59
--- NOTE | 2019-01-04 10:22 | Occupational Therapy Eval ---
OT Evaluation-General/PLF Medical Diagnosis Admission Date Jan 03, 2019 at 04:15 Medical Diagnosis: right femur fracture Onset Date: Jan 03, 2009 Therapy Diagnosis Therapy Diagnosis: decreased functional mobility and ADL function Precautions Precautions/Isolations: Standard Precautions Safety Interventions: None Weight Bear Status Weight Bearing Restriction: Weight Bearing/Tolerated Referral Physician: Frankie Referral Reason: Activity Tolerance, Self Care, Evaluation/Treatment, Strengthening/ROM Medical History Pertinent Medical History: Alcoholism, Smoking Additional Medical History PMHx of breast Ca, metastasized bone Ca, smoker, alcohol user Current History Per H&P: "Pt was walking into her apartment and fell. Denies an event that made her fall or tripping over anything. She does state she has bone metastasis from breast cancer in her leg. Rates her pain 10/10 on R leg. Ache radiates into her R hip. Pain meds help a bit. Also states she hit elbow, but denies hitting head. Surgery for femur fracture will be today at 5pm. Son is DPOA." R hip TFN completed. Reviewed History: Yes Social History Home: Apartment Current Living Status: Alone Entry Into Home: Level Entry Steps Into Home: 0 Steps Inside Home: [address] [facility]. Pt has son that lives within the area, many friends within the [facility] willing to help per pt. ADL-Prior Level of Function Therapy Code Descriptions/Definitions Functional [employer] Measure: 0=Not Assessed/NA 4=Minimal Assistance 1=Total Assistance 5=Supervision or Setup 2=Maximal Assistance 6=Modified [place] 3=Moderate Assistance 7=Complete [employer] Therapy Quality Codes: 6 Independent with activity with or without an assistive device 5 Patient requires set up or clean up by helper. Patient completes activity by themselves 4 Supervision or touching assist (CGA). [place] provide cues , steadying assist 3 The helper provides less than half the effort to complete the activity 2 The helper provides more than half the effort to complete the activity 1 Dependent. The helper does all the effort to complete an activity 7 Patient refused to complete or attempt activity 9 The patient did not perform the activity before the current illness or injury 88 Not attempted due to Medical conditions or safety concerns Functional Abilities and Goals: Independent: Patient completed the activities by him/herself, with or without an assistive device, with no assistance from a helper. Needed Some Help: Patient needed partial assistance from another person to complete activities. Dependent: A helper completed the activities for the patient. Unknown: Not Applicable: Self Care: Needed Some Help Functional Cognition: Independent DME/Equipment: Bath Chair, Grab Bars, Tall Toilet DME/Equipment Comments Use of FWW for functional mobility grab bars in shower and near toilet. Pt states IND with I/ADLs with use of FWW for functional mobility Occupation: disabled Drive Self: Yes OT Current Status Subjective Pt seen in recliner chair, pt oriented, c/o "a little" pain in R hip. Mental Status/Objective Patient Orientation: Person, Place, Situation, Normal For Age Attachments: IV Current Glasses/Contacts: Yes Hearing Aids: No Dentures/Partials: No Hand Dominance: Right Upper Extremity ROM Limited to ~100* shoulder flexion/ abduction Pt states she hasn't been able to reach full ROM since her "oral surgery about 6 months ago." Upper Extremity Coordination WFL Upper Extremity Sensation WFL, no c/o paresthesias Upper Extremity Strength 4-/5 BUE ADL-Treatment Therapy Code Descriptions/Definitions Functional [employer] Measure: 0=Not Assessed/NA 4=Minimal Assistance 1=Total Assistance 5=Supervision or Setup 2=Maximal Assistance 6=Modified [place] 3=Moderate Assistance 7=Complete [place] Therapy Quality Codes: 6 Independent with activity with or without an assistive device 5 Patient requires set up or clean up by helper. Patient completes activity by themselves 4 Supervision or touching assist (CGA). [place] provide cues , steadying assist 3 The helper provides less than half the effort to complete the activity 2 The helper provides more than half the effort to complete the activity 1 Dependent. The helper does all the effort to complete an activity 7 Patient refused to complete or attempt activity 9 The patient did not perform the activity before the current illness or injury 88 Not attempted due to Medical conditions or safety concerns Eating (FIM): 7 Grooming (FIM): 6 (Pt completes hair grooming in chair.) Toileting (FIM): 4 (CGA in stance during jamaal hygiene and pulling up undergarments) Transfers (B, C, W/C) (FIM): 3 (Pt requires mod A for scooting in chair and sit to stand to FWW.) Toilet/Commode Transfer (FIM): 3 (Mod A sit to stand from toilet.) Other Treatments Pt oriented, no c/o pain. Friend present through session. Pt states pain with movement, "about a 5/10." Pt stated uncomfort in chair, difficulty sit to stand from chair, pt requires multiple cues and mod A. Pt's knee pops upon stance per pt. Pt educated on use of pillows under bottom in chair to increase height and increase comfort. Pt completes ADL tasks, redness noted on R buttocks, nursing notified. Pt educated on shifting weight every 60 minutes in order to relieve pressure. Pt and friend state they put cream on bottom prior to hospitalization due to a bug bite on R buttocks. Pt educated on continued AROM within comfort to maintain ROM and relieve swelling. Pt transferred to bed, stating knee pops once more, sits with good control, pt bed mob requires min A for R LE movement. Pt left in bed, all needs met, call light in reach, friend present. Education OT Patient Education: Correct positioning, Exercise program, Modified ADL techniques, Purpose of tx/functional activities, Rehab process, Safety issues, Transfer techniques Teaching Recipient: Patient, Family Teaching Methods: Demonstration, Discussion Response to Teaching: Verbalize Understanding, Return Demonstration OT Short Term Goals Short Term Goals Upper Body Dressing(FIM): 6 Lower Body Dressing(FIM): 4 1=Demonstrate adherence to instructed precautions during ADL tasks. 2=Patient will verbalize/demonstrate understanding of assistive devices/modifications for ADL. 3=Patient will improve strength/tolerance for activity to enable patient to perform ADL's. OT Penitentiary Goals Surveillance System Monitor Goals Eating (FIM): 7 Grooming(FIM): 7 Bathing(FIM): 5 Upper Body Dressing(FIM): 7 Lower Body Dressing(FIM): 5 Toileting(FIM): 5 Transfers (B,C,W/C) (FIM): 5 Toilet/Commode Transfer(FIM): 5 Tub Transfer(FIM): 5 Shower Transfer(FIM): 5 Additional Goals: 1-Demonstrate ADL Tasks, 2-Verbalize Understanding, 3- ImproveStrength/Elia 1=Demonstrate adherence to instructed precautions during ADL tasks. 2=Patient will verbalize/demonstrate understanding of assistive devices/modifications for ADL. 3=Patient will improve strength/tolerance for activity to enable patient to perform ADL's. OT Education/Plan Problem List/Assessment Assessment: Decreased Activ Tolerance, Dependent Transfers, Impaired Bed Mobility, Impaired I ADL's, Impaired Self-Care Skills, Restricted Funct UE ROM Discharge Recommendations Plan/Recommendations: Continue POC Treatment Plan/Plan of Care Treatment,Training & Education: Yes Patient would benefit from OT for education, treatment and training to promote independence in ADL's, mobility, safety and/or upper extremity function for ADL's. Plan of Care: ADL Retraining, Concurrent Therapy, Functional Mobility, Group Exercise/Act as Ind, UE Funct Exercise/Act Treatment Duration: Jan 11, 2019 Frequency: 5 times per week Estimated Hrs Per Day: .25 hour per day Agreement: Yes Rehab Potential: Guarded Time/GCodes Start Time: 09:35 Stop Time: 10:14 Total Time Billed (hr/min): 39 Billed Treatment Time 1 EVM (8), ADL x2 (31)= 39 total ABDOULAYE MOSES OTR Jan 04, 2019 10:22
--- NOTE | 2019-01-04 11:41 | Progress Note ---
MARAVILLABillDEBORAH HUBBARD, 01/04/19 1141: Subjective Subjective/Events-last exam Pt seen and examined. Pain is better controlled today on oral pain medications. Rated her pain 3/10. Is having difficulty adjusting in bed. Eating fine. No BM but is passing flatus. Will be having PT in to help with ambulation. No complications in surgery last night. Objective Exam Last Set of Vital Signs Vital Signs Date Time Temp Pulse Resp B/P (MAP) Pulse Ox O2 Delivery O2 Flow Rate FiO2 01/04/19 07:04 95 Room Air 01/04/19 04:00 36.8 75 16 102/62 (75) 01/03/19 20:46 2.00 Capillary Refill : Less Than 3 SecondsLess Than 3 Seconds I&O Intake and Output 01/04/19 00:00 Intake Total 1300 ml Output Total 2675 ml Balance -1375 ml Intake Oral 250 ml IV Total 1050 ml Output Urine Total 2675 ml Daily Weight Change No No General: Alert, Oriented X3, Cooperative Lungs: Normal Air Movement, Other (crackles bilaterally) Heart: Regular Rate, No Murmurs Results/Procedures Lab Laboratory Tests 01/04/19 05:47: White Blood Count 4.1L, Red Blood Count 2.59L, Hemoglobin 8.4#L, Hematocrit 25L, Mean Corpuscular Volume 96, Mean Corpuscular Hemoglobin 32, Mean Corpuscular Hemoglobin Concent 34, Red Cell Distribution Width 16.1H, Platelet Count 134, Mean Platelet Volume 10.6H, Sodium Level 131L, Potassium Level 4.2, Chloride Level 97L, Carbon Dioxide Level 23, Anion Gap 11, Blood Urea Nitrogen 5L, Creatinine 0.55L, Estimat Glomerular Filtration Rate > 60, BUN/Creatinine Ratio 9, Glucose Level 129H, Calcium Level 8.5, Corrected Calcium 8.8, Total Bilirubin 0.4, Aspartate Amino Transf (AST/SGOT) 20, Alanine Aminotransferase (ALT/SGPT) 10, Alkaline Phosphatase 68, Total Protein 5.7L, Albumin 3.6 Assessment/Plan Assessment/Plan Assessment & Plan S/p femur repair Plan to d/c pending PT evaluation. If pt is able to ambulate well, then can go home. If not, may need senior living or rehab to assist with strength. (1) Metastatic breast cancer Status: Chronic Assessment & Plan: Managed by Oncologist in [place], but she is working on transitioning to [place] to decrease travel. Reports she has appointment coming up with Rad Onc here and was going to be seeing Dr. Bah as well. Current oral med on hold while waiting on lab follow-up per her report. (2) Fall Status: Acute Assessment & Plan: PT after surgery. Qualifiers: Qualified Codes: W19.XXXA - Unspecified fall, initial encounter (3) Hyponatremia Assessment & Plan: Suspect chronic given on home sodium. Monitor. (4) Leukopenia Assessment & Plan: Possibly secondary to her breast cancer treatment, monitor. (5) Elevated AST (SGOT) Status: Resolved Assessment & Plan: Possibly secondary to breast cancer treatment versus alcohol use as she does report slightly higher than recommended intake on a regular basis. Monitor. (6) DVT prophylaxis Status: Acute Assessment & Plan: High risk for DVT, start prophylaxis as soon as safe after surgery. Clinical Quality Measures DVT/VTE Risk/Contraindication: Risk Factor Score Per Nursin RFS Level Per Nursing on Admit: 4+=Very High KATIA JACKSON MD 01/04/19 1732: Assessment/Plan Assessment/Plan (1) Closed right femoral fracture Status: Acute Assessment & Plan: s/p surgical repair, PT, IRF consult. Qualifiers: Qualified Codes: S72.354A - Nondisplaced comminuted fracture of shaft of right femur, initial encounter for closed fracture (2) Metastatic breast cancer Status: Chronic Assessment & Plan: Managed by Oncologist in [place], but she is working on transitioning to [place] to decrease travel. Reports she has appointment coming up with Rad Onc here and was going to be seeing Dr. Bah as well. Current oral med on hold while waiting on lab follow-up per her report. (3) Fall Status: Acute Assessment & Plan: PT after surgery. Qualifiers: Qualified Codes: W19.XXXA - Unspecified fall, initial encounter (4) Hyponatremia Assessment & Plan: Suspect chronic given on home sodium. Monitor. 01/04 Improved (5) Leukopenia Assessment & Plan: Possibly secondary to her breast cancer treatment, monitor. (6) Elevated AST (SGOT) Status: Resolved Assessment & Plan: Possibly secondary to breast cancer treatment versus alcohol use as she does report slightly higher than recommended intake on a regular basis. Monitor. (7) DVT prophylaxis Status: Acute Assessment & Plan: High risk for DVT, start prophylaxis as soon as safe after surgery. Supervisory-Addendum Brief Verification & Attestation Participated in pt care: history, MDM, physical Personally performed: exam, history, MDM Care discussed with: Medical Student Procedures: n/a Verification and Attestation of Medical Student E/M Service A medical student performed and documented this service in my presence. I reviewed and verified all information documented by the medical student and made modifications to such information, when appropriate. I personally performed the physical exam and medical decision making. See problem list for my assessment an plan. Katia Jackson, Jan 05, 2019,15:43 DEBORAH CISNEROS, Jan 04, 2019 11:41 KATIA JACKSON MD Jan 04, 2019 17:32
[2019-01-04 12:00] VITALS: BP 130/72
--- NOTE | 2019-01-04 13:24 | Physical Therapy Daily Note ---
PT Daily Note-Current Subjective Patient agrees to PT. Pain Numeric Pain Scale: 5-Moderate Pain Location: Right Location Body Site: Thigh Pain Description: Acute Mental Status Patient Orientation: Normal For Age Attachments: IV Transfers Therapy Code Descriptions/Definitions Functional Emanuel Measure: 0=Not Assessed/NA 4=Minimal Assistance 1=Total Assistance 5=Supervision or Setup 2=Maximal Assistance 6=Modified Emanuel 3=Moderate Assistance 7=Complete Emanuel Therapy Quality Codes: 6 Independent with activity with or without an assistive device 5 Patient requires set up or clean up by helper. Patient completes activity by themselves 4 Supervision or touching assist (CGA). [place] provide cues , steadying assist 3 The helper provides less than half the effort to complete the activity 2 The helper provides more than half the effort to complete the activity 1 Dependent. The helper does all the effort to complete an activity 7 Patient refused to complete or attempt activity 9 The patient did not perform the activity before the current illness or injury 88 Not attempted due to Medical conditions or safety concerns Transfers (B, C, W/C) (FIM): 4 Scootin Rollin Supine to/from Sit: 4 Sit to/from Stand: 5 Bed to/from Chair: 5 PT placed commode over toilet in elevated position and pillows placed in recliner to promote safe and easier transfers Weight Bearing Right Lower Extremity: Right Weight Bearing/Tolerated Left Lower Extremity: Left Weight Bearing/Tolerated Gait Training Gait (FIM): 5 Distance (FIM): 3=150 ft Distance: 225' Gait Level of Assist: 5 Gait Assistive Device: FWW slow, reciprocal pattern Exercises Supine Ex: Ankle pumps, Quad Set, Heel Slides Supine Reps: 15 Seated Therapy Exercises: Ankle pumps, Long arc quads Seated Reps: 15 Assessment Patient tolerated treatment well and is up in recliner with needs met. PT to continue to increase activity as tolerated by patient. Patient has FWW established prior to this admit and will require a commode or raised toilet seat to ensure safe transfers in toileting at home. PT Gas Station Clerk Goals Gas Station Clerk Goals PT Senior Living Goals Time Frame: Jan 11, 2019 Transfers (B,C,W/C) (FIM): 6 Gait (FIM): 6 Gait distance (FIM): 3=150 ft Distance: 275' Gait Level of Assist: 6 Gait Assistive Device: FWW PT Plan Treatment/Plan Treatment Plan: Continue Plan of Care Treatment Plan: Bed Mobility, Education, Functional Activity Elia, Functional Strength, Gait, Safety, Therapeutic Exercise, Transfers Treatment Duration: Jan 11, 2019 Frequency: 11 times per week Estimated Hrs Per Day: .5 hour per day Patient and/or Family Agrees t: Yes Discharge Recommendations Equpiment Recommendations-D/C: Standard Bedside Commode, Toilet Riser Time/GCodes Time In: 1255 Time Out: 1320 Total Billed Treatment Time: 25 Total Billed Treatment 1 visit GT 14 min EX 11 min SANJUANA ZULUAGA PT Jan 04, 2019 13:24
--- NOTE | 2019-01-04 15:32 | Anesthesia-General Post-Op ---
General Patient Condition Mental Status/LOC: Same as Preop Cardiovascular: Satisfactory Nausea/Vomiting: Absent Respiratory: Satisfactory Pain: Controlled Complications: Absent Post Op Complications Complications None Follow Up Care/Instructions Patient Instructions None needed. Anesthesia/Patient Condition Patient Condition Patient is doing well, C/O pain which is somewhat controlled with medication, stable vital signs, no apparent adverse anesthesia problems. She is ambulating well. SY FITZGERALD DO Jan 04, 2019 15:32
--- NOTE | 2019-01-04 16:21 | NUR ---
IRF Evaluation Order received to evaluate patient for the ARU. Chart review complete and findings discussed with Dr. Hess - patient accepted for admission. SW notified. Patient's primary insurance provider is [employer]; therefore, authorization will need to be granted, prior to admission. Thank you for this referral.
[2019-01-04 16:22] VITALS: BP 110/65
[2019-01-04 19:45] VITALS: BP 120/68
[2019-01-04] MEDS: MELATONIN 3 MG TABLET PO PRN (23:35)
[2019-01-05] VITALS (7 sets, daily range): BP systolic 62–132; BP diastolic 44–82
[2019-01-05] MEDS: LACTATED RINGERS 1,000 ML IV SCH ×3 (01:40→21:57)
[2019-01-05] MEDS: HYDROcodone/APAP 7.5 MG/325 MG (LORTAB, LORCET PLUS) TABLET PO PRN ×5 (02:52→23:53)
[2019-01-05] MEDS: fentaNYL INJECTION 100 MCG/2 ML AMP IV PRN (04:49)
[2019-01-05] MEDS: MULTIVIT W/MINERALS TAB (THERAGRAN M) PO SCH (06:44)
[2019-01-05] MEDS: FUROSEMIDE 20 MG (LASIX) TAB PO SCH (08:42)
[2019-01-05] MEDS: LEVETIRACETAM 500 MG (KEPPRA) TAB PO SCH ×2 (08:42→20:58)
[2019-01-05] MEDS: SODIUM CHLORIDE 1 GM TAB (NON-FORMULARY) PO SCH ×2 (08:42→20:59)
[2019-01-05] MEDS: PANTOPRAZOLE 40 MG (PROTONIX) VIAL IV SCH (08:43)
[2019-01-05] MEDS: ENOXAPARIN 30 MG/0.3 ML (LOVENOX) SYR SC SCH ×2 (08:43→20:59)
--- NOTE | 2019-01-05 11:48 | Physical Therapy Daily Note ---
PT Daily Note-Current Subjective Patient in bed pre tx, agrees to PT reluctantly, has 6/10 pain. Patient needs to use the restroom and does so with SBA. Appearance Patient in bed post tx with nurse call, phone, tray, friend in the room. Mental Status Patient Orientation: Person, Place, Situation Attachments: IV Transfers Therapy Quality Codes: 6 Independent with activity with or without an assistive device 5 Patient requires set up or clean up by helper. Patient completes activity by themselves 4 Supervision or touching assist (CGA). [place] provide cues , steadying assist 3 The helper provides less than half the effort to complete the activity 2 The helper provides more than half the effort to complete the activity 1 Dependent. The helper does all the effort to complete an activity 7 Patient refused to complete or attempt activity 9 The patient did not perform the activity before the current illness or injury 88 Not attempted due to Medical conditions or safety concerns Transfers (B, C, W/C): 3 Roll Left to Right (QC): 4 Sit to Lying (QC): 3 Sit to Stand (QC): 4 Chair/Yfh-ya-Sjmep Xfer(QC): 4 Min assist with right leg with sit to supine, otherwise gets to side of bed and stands with SBA (extra time due to pain) Weight Bearing Right Lower Extremity: Right Weight Bearing/Tolerated Left Lower Extremity: Left Weight Bearing/Tolerated Gait Training Distance: 180' Walk 10 feet (QC): 4 Walk 50 ft with 2 Turns(QC): 4 Walk 150 ft (QC): 4 Gait Persons Needed: 1 Gait Assistive Device: FWW Patient ambulates very slowly and antalgic, has slight IR of right hip. Exercises Supine Ex: Ankle pumps, Quad Set, Glut sets, Heel Slides, Short Arc Quads, Straight leg raise, Hip abd/add Supine Reps: 10 Treatments LE exercise, bed mobility and transfers, ambulation Assessment Current Status: Fair Progress very slow general mobility due to pain PT Custodial Goals Programming Intern Goals PT Programming Intern Goals Time Frame: Jan 11, 2019 Distance: 275' Gait Level of Assist: 6 Gait Assistive Device: FWW PT Plan Problem List Problem List: Activity Tolerance, Functional Strength, Safety, Balance, Gait, Transfer, Bed Mobility, ROM Treatment/Plan Treatment Plan: Continue Plan of Care Treatment Plan: Bed Mobility, Education, Functional Activity Elia, Functional Strength, Gait, Safety, Therapeutic Exercise, Transfers Treatment Duration: Jan 11, 2019 Frequency: 11 times per week Estimated Hrs Per Day: .5 hour per day Patient and/or Family Agrees t: Yes Safety Risks/Education Patient Education: Gait Training, Transfer Techniques, Correct Positioning, Safety Issues Teaching Recipient: Patient Teaching Methods: Demonstration, Discussion Response to Teaching: Reinforcement Needed Time/GCodes Time In: 1053 Time Out: 1125 Total Billed Treatment Time: 33 Total Billed Treatment 1 visit EX 15' FA 18' ELSY CALLE PT Jan 05, 2019 11:48
--- NOTE | 2019-01-05 13:20 | Occupational Ther Daily Note ---
OT Current Status-Daily Note Subjective Pt seen reclined in bed, friend present through session. Pt states 7/10 pain during movement, 5/10 during rest. Agreeable to OT tx session. Mental Status/Objective Patient Orientation: Normal For Age Therapy Code Descriptions/Definitions Functional Ramsey Measure: 0=Not Assessed/NA 4=Minimal Assistance 1=Total Assistance 5=Supervision or Setup 2=Maximal Assistance 6=Modified Ramsey 3=Moderate Assistance 7=Complete Ramsey Attachments: IV ADL-Treatment Therapy Code Descriptions/Definitions Functional Ramsey Measure: 0=Not Assessed/NA 4=Minimal Assistance 1=Total Assistance 5=Supervision or Setup 2=Maximal Assistance 6=Modified Ramsey 3=Moderate Assistance 7=Complete Ramsey Therapy Quality Codes: 6 Independent with activity with or without an assistive device 5 Patient requires set up or clean up by helper. Patient completes activity by themselves 4 Supervision or touching assist (CGA). [place] provide cues , steadying assist 3 The helper provides less than half the effort to complete the activity 2 The helper provides more than half the effort to complete the activity 1 Dependent. The helper does all the effort to complete an activity 7 Patient refused to complete or attempt activity 9 The patient did not perform the activity before the current illness or injury 88 Not attempted due to Medical conditions or safety concerns Eating (QC): 6 (Pt completes drinking with IND.) Toileting (FIM): 4 (CGA during stance from toilet and during jamaal hygiene in s tance. ) Toileting Hygiene (QC): 4 (CGA during stance.) Toilet Transfer (QC): 4 (CGA during lowering, pt requires SBA in sit to stand from commode.) Other Treatment Pt educated on need to continue weight shifting through day. Pt states she has been rolling on L side for naps. Pt able to manipulate all items with good coordination. Completes hand hygiene at sink with SBA. Pt able to state needs and request assist as needed. Pt bed mob with increased time; completes with min A for adjusting R leg in bed. Pt repositioned with pillows for comfort and correct positioning for neutral alignment of R leg. Pt left in bed, declined need to sit in recliner, call light in reach, all needs met, friend present. Education OT Patient Education: Correct positioning, Modified ADL techniques, Purpose of tx/functional activities, Rehab process, Safety issues, Transfer techniques Teaching Recipient: Patient, Friend Teaching Methods: Demonstration, Discussion Response to Teaching: Verbalize Understanding, Return Demonstration OT Short Term Goals Short Term Goals Upper Body Dressing(FIM): 6 Lower Body Dressing(FIM): 4 1=Demonstrate adherence to instructed precautions during ADL tasks. 2=Patient will verbalize/demonstrate understanding of assistive devices/modifications for ADL. 3=Patient will improve strength/tolerance for activity to enable patient to perform ADL's. OT Manager [employer] Goals Correction Goals Additional Goals: 1-Demonstrate ADL Tasks, 2-Verbalize Understanding, 3- ImproveStrength/Elia 1=Demonstrate adherence to instructed precautions during ADL tasks. 2=Patient will verbalize/demonstrate understanding of assistive devices/orin fications for ADL. 3=Patient will improve strength/tolerance for activity to enable patient to perform ADL's. OT Education/Plan Problem List/Assessment Assessment: Decreased Activ Tolerance, Dependent Transfers, Impaired Bed Mobility, Impaired I ADL's, Impaired Self-Care Skills Discharge Recommendations Plan/Recommendations: Continue POC Equpiment Recommendations-D/C: Hip Kit Treatment Plan/Plan of Care Treatment,Training & Education: Yes Patient would benefit from OT for education, treatment and training to promote independence in ADL's, mobility, safety and/or upper extremity function for ADL's. Plan of Care: ADL Retraining, Concurrent Therapy, Functional Mobility, Group Exercise/Act as Ind, UE Funct Exercise/Act Treatment Duration: Jan 11, 2019 Frequency: 5 times per week Estimated Hrs Per Day: .25 hour per day Agreement: Yes Rehab Potential: Guarded Time/GCodes Start Time: 12:50 Stop Time: 13:13 Total Time Billed (hr/min): 23 Billed Treatment Time 1, ADLx2 (23) ABDOULAYE MOSES OTR Jan 05, 2019 13:20
--- NOTE | 2019-01-05 15:03 | Progress Note ---
DEBORAH CISNEROS, 01/05/19 1503: Subjective Subjective/Events-last exam Pt seen and c/o pain. Rated 6/10 on pain scale. Was not using IV pain medications, but this morning had dose. Denies BM, but is passing flatus. Eating well. Takes a bit of time to stand but can ambulate. Currently being evaluated for inpatient rehab, but is getting prior auth from insurance. Objective Exam Last Set of Vital Signs Vital Signs Date Time Temp Pulse Resp B/P (MAP) Pulse Ox O2 Delivery O2 Flow Rate FiO2 01/05/19 12:00 36.6 82 22 132/70 (90) 99 Room Air 01/04/19 08:00 2.00 Capillary Refill : Less Than 3 SecondsLess Than 3 Seconds I&O Intake and Output 01/05/19 00:00 Intake Total 3000 ml Output Total 900 ml Balance 2100 ml Intake Oral 3000 ml Output Urine Total 900 ml # Voids 5 General: Alert, Oriented X3, Cooperative Lungs: Clear to Auscultation Heart: Regular Rate, No Murmurs Abdomen: Normal Bowel Sounds, No Tenderness Assessment/Plan Assessment/Plan Assessment & Plan S/p femur repair Planning to d/c to inpatient rehab once prior auth is approved. (1) Metastatic breast cancer Status: Chronic Assessment & Plan: Managed by Oncologist in [place], but she is working on transitioning to [place] to decrease travel. Reports she has appointment coming up with Rad Onc here and was going to be seeing Dr. Bah as well. Current oral med on hold while waiting on lab follow-up per her report. (2) Fall Status: Acute Assessment & Plan: PT after surgery. Qualifiers: Qualified Codes: W19.XXXA - Unspecified fall, initial encounter (3) Hyponatremia Assessment & Plan: Suspect chronic given on home sodium. Monitor. (4) Leukopenia Assessment & Plan: Possibly secondary to her breast cancer treatment, monitor. (5) Elevated AST (SGOT) Status: Resolved Assessment & Plan: Possibly secondary to breast cancer treatment versus alcohol use as she does report slightly higher than recommended intake on a regular basis. Monitor. (6) DVT prophylaxis Status: Acute Assessment & Plan: High risk for DVT, start prophylaxis as soon as safe after surgery. Clinical Quality Measures DVT/VTE Risk/Contraindication: Risk Factor Score Per Nursin RFS Level Per Nursing on Admit: 4+=Very High KATIA FLEMING MD 01/05/19 1612: Supervisory-Addendum Brief Verification & Attestation Participated in pt care: history, MDM, physical Personally performed: exam, history, MDM, supervision of care Care discussed with: Medical Student Procedures: n/a Verification and Attestation of Medical Student E/M Service A medical student performed and documented this service in my presence. I reviewed and verified all information documented by the medical student and made modifications to such information, when appropriate. I personally performed the physical exam and medical decision making. Katia Fleming, Jan 05, 2019,16:12 DEBORAH CISNEROS, Jan 05, 2019 15:03 KATIA FLEMING MD Jan 05, 2019 16:12
--- NOTE | 2019-01-05 15:20 | Physical Therapy Progress Note ---
Therapy Progress Note Patient refused PT this afternoon. She says her pain is too intense to participate, "she has had pain meds and it has not helped at all and she cannot do it right now". Will try back in the morning. ELSY CALLE PT Jan 05, 2019 15:20
--- NOTE | 2019-01-05 16:17 | NUR ---
Received message from [facility] that pt was denied admission.Discussed possible skilled placement with pt and she was agreeable to sending her evaluations to [facility] for short-term rehab on their skilled unit. Evaluations were faxed to [facility] and awaiting if they can accept and pt's insurance approves of admission.
--- NOTE | 2019-01-05 23:51 | NUR ---
primary rn shu in room when b/p was taken, was informed that this b/p is improving from previous
[2019-01-06] VITALS (8 sets, daily range): BP systolic 73–94; BP diastolic 20–60
--- NOTE | 2019-01-06 00:29 | NUR ---
CONTACTED DR JACKSON REGARDING PATIENTS BP'S 62/44@1999 73/47@0000. ORDER FOR 1L BOLUS RECEIVED.
[2019-01-06] MEDS ORDERED: LACTATED RINGERS 1,000 ML IV SCH (00:45)
--- NOTE | 2019-01-06 02:14 | NUR ---
BP POST BOLUS IS 85/53. NOTIFIED DR JACKSON. INCREASE FLUIDS TO 150ML/HR
[2019-01-06] MEDS: LACTATED RINGERS 1,000 ML IV SCH ×3 (05:18→15:33)
[2019-01-06] MEDS: HYDROcodone/APAP 7.5 MG/325 MG (LORTAB, LORCET PLUS) TABLET PO PRN ×4 (05:19→20:40)
[2019-01-06] MEDS: PANTOPRAZOLE 40 MG (PROTONIX) TAB PO SCH (06:05)
[2019-01-06] MEDS: MULTIVIT W/MINERALS TAB (THERAGRAN M) PO SCH (06:05)
--- NOTE | 2019-01-06 10:25 | Physical Therapy Daily Note ---
PT Daily Note-Current Subjective Patient reluctantly agrees to PT. Pain Numeric Pain Scale: 5-Moderate Pain Location: Right Location Body Site: Hip Pain Description: Acute Mental Status Patient Orientation: Normal For Age Attachments: IV Transfers Therapy Quality Codes: 6 Independent with activity with or without an assistive device 5 Patient requires set up or clean up by helper. Patient completes activity by themselves 4 Supervision or touching assist (CGA). [place] provide cues , steadying assist 3 The helper provides less than half the effort to complete the activity 2 The helper provides more than half the effort to complete the activity 1 Dependent. The helper does all the effort to complete an activity 7 Patient refused to complete or attempt activity 9 The patient did not perform the activity before the current illness or injury 88 Not attempted due to Medical conditions or safety concerns Transfers (B, C, W/C): 5 Roll Left to Right (QC): 5 Sit to Lying (QC): 5 Sit to Stand (QC): 5 Chair/Lea-cg-Yuvqb Xfer(QC): 5 Bed to/from Chair: 5 Weight Bearing Right Lower Extremity: Right Weight Bearing/Tolerated Left Lower Extremity: Left Weight Bearing/Tolerated Gait Training Does the Patient Walk?: Yes Gait: 5 Distance: 225' Walk 10 feet (QC): 5 Walk 50 ft with 2 Turns(QC): 5 Walk 150 ft (QC): 5 Gait Persons Needed: 5 Gait Assistive Device: FWW steady, reciprocal pattern Exercises Supine Ex: Ankle pumps, Quad Set Supine Reps: 15 Seated Therapy Exercises: Ankle pumps, Long arc quads Seated Reps: 15 Assessment Patient continued to report she just wants to be in bed today. PT educated patient on importance of participating with therapy and OOB activities to prevent possible negative side effects. Patient continue to state the previous. PT to increase activity as tolerated by patient. PT Residential Goals Stone Mill Operator Goals PT Stone Mill Operator Goals Time Frame: Jan 11, 2019 Distance: 275' Gait Level of Assist: 6 Gait Assistive Device: FWW PT Plan Treatment/Plan Treatment Plan: Continue Plan of Care Treatment Plan: Bed Mobility, Education, Functional Activity Elia, Functional Strength, Gait, Safety, Therapeutic Exercise, Transfers Treatment Duration: Jan 11, 2019 Frequency: 11 times per week Estimated Hrs Per Day: .5 hour per day Patient and/or Family Agrees t: Yes Time/GCodes Time In: 901 Time Out: 924 Total Billed Treatment Time: 23 Total Billed Treatment 1 visit GT 10 min EX 13 min SANJUANA ZULUAGA PT Jan 06, 2019 10:25
[2019-01-06] MEDS: ENOXAPARIN 30 MG/0.3 ML (LOVENOX) SYR SC SCH ×2 (10:49→20:40)
[2019-01-06] MEDS: SODIUM CHLORIDE 1 GM TAB (NON-FORMULARY) PO SCH ×2 (10:50→20:40)
[2019-01-06] MEDS: FUROSEMIDE 20 MG (LASIX) TAB PO SCH (10:50)
[2019-01-06] MEDS: LEVETIRACETAM 500 MG (KEPPRA) TAB PO SCH ×2 (10:50→20:40)
--- NOTE | 2019-01-06 10:55 | Occupational Ther Daily Note ---
OT Current Status-Daily Note Subjective Pt alert sitting in bed. Pts friends in room. Pt agrees to therapy. No c/o pain. Mental Status/Objective Patient Orientation: Person, Place, Time, Situation Therapy Code Descriptions/Definitions Functional [place] Measure: 0=Not Assessed/NA 4=Minimal Assistance 1=Total Assistance 5=Supervision or Setup 2=Maximal Assistance 6=Modified [place] 3=Moderate Assistance 7=Complete [place] ADL-Treatment Therapy Code Descriptions/Definitions Functional [place] Measure: 0=Not Assessed/NA 4=Minimal Assistance 1=Total Assistance 5=Supervision or Setup 2=Maximal Assistance 6=Modified [place] 3=Moderate Assistance 7=Complete [place] Therapy Quality Codes: 6 Independent with activity with or without an assistive device 5 Patient requires set up or clean up by helper. Patient completes activity by themselves 4 Supervision or touching assist (CGA). [place] provide cues , steadying assist 3 The helper provides less than half the effort to complete the activity 2 The helper provides more than half the effort to complete the activity 1 Dependent. The helper does all the effort to complete an activity 7 Patient refused to complete or attempt activity 9 The patient did not perform the activity before the current illness or injury 88 Not attempted due to Medical conditions or safety concerns Other Treatment Pt participated in 5 UE against gravity exercises 2x 10 reps. Skilled instructions by therapist needed for positioning and technique. Pt required 2 rest breaks due to decreased activity tolerance. Pt required redirection multiple times throughout session to refocus on task at hand. Education OT Patient Education: Correct positioning Teaching Recipient: Patient Teaching Methods: Demonstration Response to Teaching: Verbalize Understanding, Return Demonstration, Reinforcement Needed OT Short Term Goals Short Term Goals Upper Body Dressing(FIM): 6 Lower Body Dressing(FIM): 4 1=Demonstrate adherence to instructed precautions during ADL tasks. 2=Patient will verbalize/demonstrate understanding of assistive devices/modifications for ADL. 3=Patient will improve strength/tolerance for activity to enable patient to perform ADL's. OT Skilled Nursing Goals Careers Adviser Goals Additional Goals: 1-Demonstrate ADL Tasks, 2-Verbalize Understanding, 3- ImproveStrength/Elia 1=Demonstrate adherence to instructed precautions during ADL tasks. 2=Patient will verbalize/demonstrate understanding of assistive devices/modifications for ADL. 3=Patient will improve strength/tolerance for activity to enable patient to perform ADL's. OT Education/Plan Problem List/Assessment Assessment: Decreased Activ Tolerance, Decreased UE Strength Discharge Recommendations Plan/Recommendations: Continue POC Treatment Plan/Plan of Care Patient would benefit from OT for education, treatment and training to promote independence in ADL's, mobility, safety and/or upper extremity function for ADL's. Plan of Care: ADL Retraining, Concurrent Therapy, Functional Mobility, Group Exercise/Act as Ind, UE Funct Exercise/Act Treatment Duration: Jan 11, 2019 Frequency: 5 times per week Estimated Hrs Per Day: .25 hour per day Agreement: Yes Rehab Potential: Guarded Time/GCodes Start Time: 10:23 Stop Time: 10:43 Total Time Billed (hr/min): 20 Billed Treatment Time 1 visit- ADL 1 (20 min) BRINA SUAREZ Jan 06, 2019 10:55
--- NOTE | 2019-01-06 13:23 | NUR ---
Knapsack Sprayer follow up with pt's friend, Whit. Whit said she befrended the pt when she moved into [place]. The pt called Whit when she fell, and Whit contacted EMS. She states the pt has stage 4 breast cancer, and described her as a strong and compassionate person. Whit's approx 2 years ago, and the pt's friendship has been of consolation and support.
--- NOTE | 2019-01-06 13:51 | Physical Therapy Daily Note ---
PT Daily Note-Current Subjective Patient agrees to exercises only. Adamantly declined OOB activity. Pain Numeric Pain Scale: 7 Location: Right Location Body Site: Thigh Pain Description: Acute Mental Status Patient Orientation: Normal For Age Attachments: IV Transfers Therapy Quality Codes: 6 Independent with activity with or without an assistive device 5 Patient requires set up or clean up by helper. Patient completes activity by themselves 4 Supervision or touching assist (CGA). [place] provide cues , steadying assist 3 The helper provides less than half the effort to complete the activity 2 The helper provides more than half the effort to complete the activity 1 Dependent. The helper does all the effort to complete an activity 7 Patient refused to complete or attempt activity 9 The patient did not perform the activity before the current illness or injury 88 Not attempted due to Medical conditions or safety concerns Weight Bearing Right Lower Extremity: Right Weight Bearing/Tolerated Left Lower Extremity: Left Weight Bearing/Tolerated Exercises Supine Ex: Ankle pumps, Quad Set, Heel Slides, Straight leg raise Supine Reps: 10 (2 sets bilaterally) Assessment Patient tolerated treatment well. Patient does self limit by not performing OOB activity due to right LE pain. PT Willower Goals Senior Living Goals PT Senior Living Goals Time Frame: Jan 11, 2019 Distance: 275' Gait Level of Assist: 6 Gait Assistive Device: FWW PT Plan Treatment/Plan Treatment Plan: Continue Plan of Care Treatment Plan: Bed Mobility, Education, Functional Activity Elia, Functional Strength, Gait, Safety, Therapeutic Exercise, Transfers Treatment Duration: Jan 11, 2019 Frequency: 11 times per week Estimated Hrs Per Day: .5 hour per day Patient and/or Family Agrees t: Yes Time/GCodes Time In: 1300 Time Out: 1314 Total Billed Treatment Time: 14 Total Billed Treatment 1 visit EX 14 min SANJUANA ZULUAGA PT Jan 06, 2019 13:51
--- NOTE | 2019-01-06 15:08 | Progress Note ---
Subjective Subjective/Events-last exam Doing well, hoping to go to [facility] soon. Objective Exam Last Set of Vital Signs Vital Signs Date Time Temp Pulse Resp B/P (MAP) Pulse Ox O2 Delivery O2 Flow Rate FiO2 01/06/19 12:00 36.7 86 18 73/41 (52) 96 Room Air 01/04/19 08:00 2.00 Capillary Refill : Less Than 3 SecondsLess Than 3 Seconds I&O Intake and Output 01/06/19 00:00 Intake Total 3940 ml Balance 3940 ml Intake Oral 2940 ml IV Total 1000 ml # Voids 15 General: Alert, No Acute Distress Lungs: Clear to Auscultation, Normal Air Movement Heart: Regular Rate, No Murmurs Abdomen: Normal Bowel Sounds, Soft Psych/Mental Status: Mental Status NL Assessment/Plan Assessment/Plan Assessment & Plan (1) Closed right femoral fracture Status: Acute Assessment & Plan: s/p surgical repair, PT, IRF consult. 01/06 IRF not covered by insurance, [facility] placement referrals made Qualifiers: Qualified Codes: S72.354A - Nondisplaced comminuted fracture of shaft of right femur, initial encounter for closed fracture (2) Metastatic breast cancer Status: Chronic Assessment & Plan: Managed by Oncologist in [place], but she is working on transitioning to [place] to decrease travel. Reports she has appointment coming up with Rad Onc here and was going to be seeing Dr. Bah as well. Current oral med on hold while waiting on lab follow-up per her report. (3) Fall Status: Acute Assessment & Plan: PT after surgery. Qualifiers: Qualified Codes: W19.XXXA - Unspecified fall, initial encounter (4) Hyponatremia Assessment & Plan: Suspect chronic given on home sodium. Monitor. 01/04 Improved (5) Leukopenia Assessment & Plan: Possibly secondary to her breast cancer treatment, monitor. (6) Elevated AST (SGOT) Status: Resolved Assessment & Plan: Possibly secondary to breast cancer treatment versus alcohol use as she does report slightly higher than recommended intake on a regular basis. Monitor. (7) DVT prophylaxis Status: Acute Assessment & Plan: High risk for DVT, started enoxaparin after surgery. Clinical Quality Measures DVT/VTE Risk/Contraindication: Risk Factor Score Per Nursin RFS Level Per Nursing on Admit: 4+=Very High KEELEY JACKSON MD Jan 06, 2019 15:08
--- NOTE | 2019-01-06 16:00 | NUR ---
THIS RN NOTIFIED DR. JACKSON THAT PATIENT CONTINUES TO BE HYPOTENSIVE. (SEE VITALS). DR. JACKSON STATED THAT SHE IS NOT TERRIBLY WORRIED OVER BLOOD PRESSURES DUE TO PATIENT BEING ASYMPTOMATIC. THIS RN VOICED CONCERN OF HGB OF 8.1 FROM 01/04/2019 IT HAS NOT BEEN RECHECKED. ORDERS WERE RECEIVED TO CHECK CBC AT THIS TIME
--- NOTE | 2019-01-06 17:12 | NUR ---
Pt has been accepted for Skilled care at [facility] with plans to admit tomorrow Oct. 4. Pt agreeable with skilled care plan for short-term Rehab.
[2019-01-06 17:32] LABS: MEAN PLATELET VOLUME 9.9 FL (7.4-10.4); RED CELL DISTRIBUTION WIDTH 16.1 % (10.0-14.5); WHITE BLOOD COUNT 3.8 10^3/uL (4.3-11.0)
[2019-01-06 17:41] LABS: HEMOGLOBIN 6.3 G/DL (11.5-16.0)
--- NOTE | 2019-01-06 17:41 | NUR ---
DR. JACKSON NOTIFIED OF CRITICAL H/H (.06/22). NEW ORDERS RECEIVED. PATIENT TYPED AND CROSSMATCHED, WITH 1 UNIT OF PRBCS TO BE ADMINISTERED. CLARIBEL SALAS NOTIFIED AT THIS TIME PER REQUEST FROM DR. JACKSON TO NOTIFY ORTHO OF PATIENT STATUS. REPEAT CBC TO BE ORDERED FOR AM PER CLARIBEL SALAS.
[2019-01-06] MEDS ORDERED: NS IV 500 ML 500 ML IV SCH (17:57)
[2019-01-06] MEDS: MELATONIN 3 MG TABLET PO PRN (23:15)
[2019-01-07 00:36] VITALS: BP 85/50
[2019-01-07] MEDS: HYDROcodone/APAP 7.5 MG/325 MG (LORTAB, LORCET PLUS) TABLET PO PRN ×4 (00:43→12:35)
[2019-01-07] MEDS: LACTATED RINGERS 1,000 ML IV SCH (00:43)
[2019-01-07 04:45] VITALS: BP 84/51
[2019-01-07] MEDS: PANTOPRAZOLE 40 MG (PROTONIX) TAB PO SCH (05:19)
[2019-01-07] MEDS: MULTIVIT W/MINERALS TAB (THERAGRAN M) PO SCH (05:19)
[2019-01-07 05:45] LABS: HEMOGLOBIN 7.7 G/DL (11.5-16.0)
[2019-01-07 07:47] LABS: HEMOGLOBIN 7.6 G/DL (11.5-16.0); MEAN PLATELET VOLUME 10.7 FL (7.4-10.4); RED CELL DISTRIBUTION WIDTH 16.2 % (10.0-14.5); WHITE BLOOD COUNT 3.4 10^3/uL (4.3-11.0)
[2019-01-07 07:53] LABS: BUN/CREATININE RATIO 13; CALCIUM 8.7 MG/DL (8.5-10.1); CARBON DIOXIDE 25 MMOL/L (21-32); CHLORIDE 95 MMOL/L (98-107); CREATININE SERUM 0.52 MG/DL (0.60-1.30); GFR ESTIMATED > 60; GLUCOSE 106 MG/DL (70-105); POTASSIUM 3.6 MMOL/L (3.6-5.0); SODIUM 131 MMOL/L (135-145)
[2019-01-07 08:00] VITALS: BP 98/61
[2019-01-07] MEDS: ENOXAPARIN 30 MG/0.3 ML (LOVENOX) SYR SC SCH (09:29)
[2019-01-07] MEDS: SODIUM CHLORIDE 1 GM TAB (NON-FORMULARY) PO SCH (09:29)
[2019-01-07] MEDS: FUROSEMIDE 20 MG (LASIX) TAB PO SCH (09:29)
[2019-01-07] MEDS: LEVETIRACETAM 500 MG (KEPPRA) TAB PO SCH (09:29)
--- NOTE | 2019-01-07 09:55 | Physical Therapy Daily Note ---
PT Daily Note-Current Subjective Patient agrees to exercises only. Patient reports she is leaving for [facility] on this date and SW confirms. Pain Numeric Pain Scale: 5-Moderate Pain Location: Right Location Body Site: Knee Pain Description: Acute Mental Status Patient Orientation: Normal For Age Attachments: IV Transfers Therapy Quality Codes: 6 Independent with activity with or without an assistive device 5 Patient requires set up or clean up by helper. Patient completes activity by themselves 4 Supervision or touching assist (CGA). [place] provide cues , steadying assist 3 The helper provides less than half the effort to complete the activity 2 The helper provides more than half the effort to complete the activity 1 Dependent. The helper does all the effort to complete an activity 7 Patient refused to complete or attempt activity 9 The patient did not perform the activity before the current illness or injury 88 Not attempted due to Medical conditions or safety concerns Weight Bearing Right Lower Extremity: Right Weight Bearing/Tolerated Left Lower Extremity: Left Weight Bearing/Tolerated Exercises Supine Ex: Ankle pumps, Quad Set, Heel Slides, Straight leg raise, Hip abd/add Supine Reps: 15 (AAROM right LE) Assessment Patient tolerated treatment and is dismissing to MD on this date for continued care. PT Reeling Machine Operator Goals Reeling Machine Operator Goals PT Reeling Machine Operator Goals Time Frame: Jan 11, 2019 Distance: 275' Gait Level of Assist: 6 Gait Assistive Device: FWW PT Plan Treatment/Plan Treatment Plan: Discontinue PT Treatment Plan: Bed Mobility, Education, Functional Activity Elia, Functional Strength, Gait, Safety, Therapeutic Exercise, Transfers Treatment Duration: Jan 11, 2019 Frequency: 11 times per week Estimated Hrs Per Day: .5 hour per day Patient and/or Family Agrees t: Yes Time/GCodes Time In: 919 Time Out: 927 Total Billed Treatment Time: 8 Total Billed Treatment 1 visit EX 8 min SANJUANA ZULUAGA PT Jan 07, 2019 09:55
--- NOTE | 2019-01-07 10:21 | Occupational Ther Daily Note ---
OT Current Status-Daily Note Subjective Pt seen in bed, alert/ oriented. Pt denies need for going to bathroom or dressing tasks. Pt states 8/10 pain in R hip/ back due to pt going to rest room prior to treatment. Pt agreeable to OT services. Mental Status/Objective Patient Orientation: Normal For Age Therapy Code Descriptions/Definitions Functional [place] Measure: 0=Not Assessed/NA 4=Minimal Assistance 1=Total Assistance 5=Supervision or Setup 2=Maximal Assistance 6=Modified [place] 3=Moderate Assistance 7=Complete [place] ADL-Treatment Therapy Code Descriptions/Definitions Functional [place] Measure: 0=Not Assessed/NA 4=Minimal Assistance 1=Total Assistance 5=Supervision or Setup 2=Maximal Assistance 6=Modified [place] 3=Moderate Assistance 7=Complete [place] Therapy Quality Codes: 6 Independent with activity with or without an assistive device 5 Patient requires set up or clean up by helper. Patient completes activity by themselves 4 Supervision or touching assist (CGA). [place] provide cues , steadying assist 3 The helper provides less than half the effort to complete the activity 2 The helper provides more than half the effort to complete the activity 1 Dependent. The helper does all the effort to complete an activity 7 Patient refused to complete or attempt activity 9 The patient did not perform the activity before the current illness or injury 88 Not attempted due to Medical conditions or safety concerns Eating (QC): 6 Other Treatment Pt completes hair grooming tasks; pt able to reach lower portion of neck with R UE, unable to reach toward top of head. Pt states since oral surgery pt has not been able to lift arms too high. Pt completes hair grooming and fixing with increased time. pt completes AROM exercises, focused on shoulder flexion and abduction. Pt reaches ~100* shoulder flexion, WFL abduction. Pt's strength BUE=4/5. Pt completes PROM of shoulder flexion/ abduction to full range, no c/o pain. Pt educated of importance of increasing movement and continuing exercises for functional strength, endurance, and ROM during ADL tasks. Pt left with call light in reach, all needs met. Education OT Patient Education: Correct positioning, Exercise program, Home exercise program, Modified ADL techniques, Purpose of tx/functional activities Teaching Recipient: Patient Teaching Methods: Demonstration, Discussion Response to Teaching: Verbalize Understanding, Return Demonstration OT Short Term Goals Short Term Goals Upper Body Dressing(FIM): 6 Lower Body Dressing(FIM): 4 1=Demonstrate adherence to instructed precautions during ADL tasks. 2=Patient will verbalize/demonstrate understanding of assistive devic es/modifications for ADL. 3=Patient will improve strength/tolerance for activity to enable patient to perform ADL's. OT Fci Goals Fci Goals Additional Goals: 1-Demonstrate ADL Tasks, 2-Verbalize Understanding, 3- ImproveStrength/Elia 1=Demonstrate adherence to instructed precautions during ADL tasks. 2=Patient will verbalize/demonstrate understanding of assistive devices/modifications for ADL. 3=Patient will improve strength/tolerance for activity to enable patient to perform ADL's. OT Education/Plan Problem List/Assessment Assessment: Decreased Activ Tolerance, Impaired I ADL's, Impaired Self-Care Skills, Restricted Funct UE ROM Discharge Recommendations Plan/Recommendations: Continue POC Treatment Plan/Plan of Care Treatment,Training & Education: Yes Patient would benefit from OT for education, treatment and training to promote independence in ADL's, mobility, safety and/or upper extremity function for ADL's. Plan of Care: ADL Retraining, Concurrent Therapy, Functional Mobility, Group Exercise/Act as Ind, UE Funct Exercise/Act Treatment Duration: Jan 11, 2019 Frequency: 5 times per week Estimated Hrs Per Day: .25 hour per day Agreement: Yes Rehab Potential: Guarded Time/GCodes Start Time: 09:06 Stop Time: 09:18 Total Time Billed (hr/min): 12 Billed Treatment Time 1, ADL (12) ABDOULAYE MOSES OTR Jan 07, 2019 10:21
[2019-01-07] MEDS ORDERED: HYDR-34 PO (10:28)
--- NOTE | 2019-01-07 10:29 | Discharge Inst-Skilled Nursing ---
Discharge Inst-Skilled NF Patient Instructions Patient Problems: Right femur fracture s/p repair Metastatic breast cancer Consult/Follow Up/Orders Skilled NF Admit to: [facility] Certifications SNF I certify that SNF services are required to be given on an inpatient basis because of the above named patient's need for custodial care on a continuing basis for the conditions(s) for which he/she was receiving inpatient hospital services prior to his/her transfer to the SNF. Halfway Facility Order: Nursing Services, Physical Therapy-Evaluate & Treat Oxygen Delivery Method: Room Air Discharge Diet: Regular Diet Discharge Medications New, Converted or Re-Newed RX: RX on Chart New Medications: Hydrocodone Bit/Acetaminophen (Lortab 7.5 Mg Tablet) 1 Ea Tablet 1 EA PO Q4H PRN for PAIN-MODERATE, #30 TAB 0 Refills Continued Medications: Aspirin (Aspirin EC) 81 Mg Tablet.dr 81 MG PO DAILY, TAB Clopidogrel Bisulfate (Clopidogrel) 75 Mg Tablet 75 MG PO DAILY, TAB Fulvestrant (Faslodex) 250 Mg/5 Ml Syringe IM MONTHLY, SYRINGE Furosemide (Furosemide) 20 Mg Tablet 20 MG PO DAILY, TAB Levetiracetam (Levetiracetam) 500 Mg Tablet 500 MG PO BID, TAB Melatonin (Melatonin) 5 Mg Capsule 5 MG PO HS PRN for SLEEP, CAP Mv-Mn/Folic Acid/Calcium/Vit K (Women's 50 Plus Multivit Tab) 1 Each Tablet 1 TAB PO DAILY, TAB Palbociclib (Ibrance) 125 Mg Capsule 125 MG PO UD, CAP TAKES ONCE DAILY X 3 WEEKS THEN OFF 1 WEEK THEN REPEAT CURRENTLY ON HOLD Pedi Mv No.79/Ferrous Fumarate (Flintstones with Iron Tab Chew) 18 Mg Tab.chew 18 MG PO DAILY, TAB Sodium Chloride (Sodium Chloride) 1 Gm Tab 2 GM PO BID, TAB TAKES 2 (1GM) TABLETS Keeley Fleming Jan 07, 2019 10:28 KEELEY FLEMING MD Jan 07, 2019 10:29
[2019-01-07] MEDS ORDERED: TIZA4TAB4 PO (12:49)
--- NOTE | 2019-01-07 14:21 | NUR ---
Arrangements completed for pt discharge to [facility] for short-term rehab. CARE assessment completed. Discharge orders and medical evaluations given to [facility] staff. Pt pleased with continued care plan.
[2019-01-07 14:53] VITALS: BP 98/61
--- NOTE | 2019-01-07 17:42 | Discharge Summary ---
Discharge Summary Hospital Course Problems/Diagnosis: (1) Closed right femoral fracture Status: Acute Assessment & Plan: s/p surgical repair, PT, IRF consult. IRF not covered by insurance, half-way placement referrals made, pt d/c to [facility] on 01/07. Qualifiers: Qualified Codes: S72.354A - Nondisplaced comminuted fracture of shaft of right femur, initial encounter for closed fracture (2) Metastatic breast cancer Status: Chronic Assessment & Plan: Managed by Oncologist in [place], but she is working on transitioning to [place] to decrease travel. Reports she has appointment coming up with Rad Onc here and was going to be seeing Dr. Bah as well. Current oral med on hold while waiting on lab follow-up per her report. (3) Fall Status: Acute Assessment & Plan: PT after surgery. Qualifiers: Qualified Codes: W19.XXXA - Unspecified fall, initial encounter (4) Hyponatremia Assessment & Plan: Suspect chronic given on home sodium. Monitor. 01/04 Improved Stable on d/c (5) Leukopenia Assessment & Plan: Possibly secondary to her breast cancer treatment, monitor. (6) Elevated AST (SGOT) Status: Resolved Resolution Date/Time: 01/04/19 @ 15:40 Assessment & Plan: Possibly secondary to breast cancer treatment versus alcohol use as she does report slightly higher than recommended intake on a regular basis. Monitor. (7) Postoperative anemia Status: Acute Assessment & Plan: Received 1 unit PRBCs on 01/06. (8) Low blood pressure Assessment & Plan: Last 2-3 days of admission patient had markedly low BP, h owever never with tachycardia and never with symptoms, she stated BP runs low frequently. No change with IVF or transfusion, suspect chronic. Hospital Course Date of Admission: Jan 03, 2019 at 04:15 Admission Diagnosis : Family Physician/Provider: Date of Discharge: 01/07/19 Discharge Diagnosis: [ ] Hospital Course: [ ] Labs and Pending Lab Test: Laboratory Tests 01/06/19 17:25: White Blood Count 3.8L, Red Blood Count 1.97L, Hemoglobin 6.3#*L, Hematocrit 19*L, Mean Corpuscular Volume 98, Mean Corpuscular Hemoglobin 32, Mean Corpuscular Hemoglobin Concent 33, Red Cell Distribution Width 16.1H, Platelet Count 154, Mean Platelet Volume 9.9 01/07/19 05:15: White Blood Count 3.4L, Red Blood Count 2.37L, Hemoglobin 7.6L, Hematocrit 23L, Mean Corpuscular Volume 96, Mean Corpuscular Hemoglobin 32, Mean Corpuscular Hemoglobin Concent 34, Red Cell Distribution Width 16.2H, Platelet Count 157, Mean Platelet Volume 10.7H, Sodium Level 131L, Potassium Level 3.6, Chloride Level 95L, Carbon Dioxide Level 25, Anion Gap 11, Blood Urea Nitrogen 7, Creatinine 0.52L, Estimat Glomerular Filtration Rate > 60, BUN/Creatinine Ratio 13, Glucose Level 106H, Calcium Level 8.7 Home Meds Active Tizanidine HCl 4 Mg Tablet 4 Mg PO TID PRN Lortab 7.5 Mg Tablet (Acetaminophen/Hydrocodone Bitart) 1 Ea Tablet 1 Ea PO Q4H PRN Reported Flintstones with Iron Tab Chew (Pedi Mv No.79/Ferrous Fumarate) 18 Mg Tab.chew 18 Mg PO DAILY Women's 50 Plus Multivit Tab (Mv-Mn/Folic Acid/Calcium/Vit K) 1 Each Tablet 1 Tab PO DAILY Clopidogrel (Clopidogrel Bisulfate) 75 Mg Tablet 75 Mg PO DAILY Levetiracetam 500 Mg Tablet 500 Mg PO BID Sodium Chloride 1 Gm Tab 2 Gm PO BID TAKES 2 (1GM) TABLETS Aspirin EC (Aspirin) 81 Mg Tablet.dr 81 Mg PO DAILY Melatonin 5 Mg Capsule 5 Mg PO HS PRN Ibrance (Palbociclib) 125 Mg Capsule 125 Mg PO UD TAKES ONCE DAILY X 3 WEEKS THEN OFF 1 WEEK THEN REPEAT CURRENTLY ON HOLD Faslodex (Fulvestrant) 250 Mg/5 Ml Syringe IM MONTHLY Furosemide 20 Mg Tablet 20 Mg PO DAILY Assessment/Pt DC Instructions See above Discharge Physical Examination Allergies: Coded Allergies: No Known Drug Allergies (Unverified , 01/03/19) General Appearance: No Apparent Distress, WD/WN Respiratory: Lungs Clear, Normal Breath Sounds Cardiovascular: Regular Rate, Rhythm, No Edema Skin: Normal Color, Warm/Dry Neurologic/Psychiatric: Alert, Normal Mood/Affect Discharge Summary Date of Admission Jan 03, 2019 at 04:15 Date of Discharge Jan 07, 2019 at 14:53 Discharge Date: Jan 07, 2019 Clinical Quality Measures DVT/VTE Risk/Contraindication: Risk Factor Score Per Nursin RFS Level Per Nursing on Admit: 4+=Very High KEELEY JACKSON MD Jan 07, 2019 17:15
== END 2019-01-07 14:53 | DRG 481 ==
LOC: EDUNIT# 01:14 → ER 01:19 → 4TH 04:15
PROVIDERS: ADMIT Internal Medicine; ATTEND Family Medicine
PROC: 0QS636Z Reposition Right Upper Femur with Intramedullary Internal Fixation Device, Percutaneous Approach (ICD-10-PCS; principal; 2019-01-03 15:30)
DX: M84.551A Pathological fracture in neoplastic disease, right femur, initial encounter for fracture (principal); C79.51 Secondary malignant neoplasm of bone; C50.912 Malignant neoplasm of unspecified site of left female breast; E87.1 Hypo-osmolality and hyponatremia; N18.9 Chronic kidney disease, unspecified; F17.210 Nicotine dependence, cigarettes, uncomplicated; D70.1 Agranulocytosis secondary to cancer chemotherapy; R74.8 Abnormal levels of other serum enzymes; Z79.02 Long term (current) use of antithrombotics/antiplatelets; Z86.73 Personal history of transient ischemic attack (TIA), and cerebral infarction without residual deficits; Z90.13 Acquired absence of bilateral breasts and nipples; W19.XXXA Unspecified fall, initial encounter; Y92.039 Unspecified place in apartment as the place of occurrence of the external cause
CPT/HCPCS: 36415; 51702; 70450; 71045; 72125; 73080; 73552; 80048; 80053; 81000; 85007; 85014; 85018; 85027; 86850; 86900; 86901; 86920; 94664; 94760; 96361; 96374; 96376

== ENCOUNTER → 2019-03-08 | Outpatient (CLI) | payer MEDICAID, MEDICARE, OTHER ==
[~2019-03-08] MED LIST: ASPI-983 PO; CLOP75TA28 PO; FULV250D2 IM; FURO20TA4 PO; HYDR-34 PO; LEVE500T6 PO; MELA5CAP PO; MV-M1TAB57 PO; NF-NACL1GT PO; PALB125C PO; PEDI18TA2 PO; TIZA4TAB4 PO
--- NOTE | 2019-03-08 15:37 | Diagnostic Imaging Report ---
INDICATION: 58-year-old postmenopausal female. COMPARISON: None FINDINGS: AP Spine L1-L4: [BMD (g/cm2): 1.098] [T-Score: -0.9] [Z-Score: 0.7] [BMD Previous: N/A] [BMD % Change: N/A] LT Hip Neck: [BMD (g/cm2): 0.740] [T-Score: -2.1] [Z-Score: -0.7] LT Hip Total: [BMD (g/cm2):0.693] [T-Score:-2.5] [Z-Score: -1.3] [BMD Previous: N/A] [BMD % Change: N/A] RT Hip Neck: [BMD (g/cm2):N/A] [T-Score:N/A] [Z-Score:N/A] RT Hip Total: [BMD (g/cm2):N/A] [T-score:N/A] [Z-Score:N/A] [BMD Previous:N/A] [BMD % Change:N/A] World Health Organization criteria for BMD interpretation classify patients as Normal (T-score at or above -1.0), Osteopenic (T-score between -1.0 and -2.5) or Osteoporotic (T-score at or below -2.5). LIMITATIONS AND MODIFICATION: Patient has right femoral flaquito. IMPRESSION: 1. Osteoporosis. 2. Baseline examination. 3. See below National Osteoporosis Foundation guidelines on when to potentially initiate pharmacologic therapy. Based on the National Osteoporosis Foundation Guidelines, pharmacologic treatment should be initiated in any of the following, unless clinical conditions suggest otherwise: * Any patient with prior fragility fracture of the hip or vertebrae. A spine fracture indicates 5X risk for subsequent spine fracture and 2X risk for subsequent hip fracture. * Osteoporosis (T-score <-2.5). * Postmenopausal women and men age 50 and older with low bone mass/osteopenia (T-score between -1.0 and -2.5) by DXA and 10-year major osteoporotic fracture greater than 20% or a 10-year probability of hip fracture greater than 3%. These fracture risks are supplied above in the FRAX score, if applicable. * Clinician judgement and/or patient preferences may indicate treatment for people with 10-year fracture probabilities above or below these levels. Dictated by: Dictated on workstation # [id number]
== END ==
LOC: RAD 12:34
PROVIDERS: ATTEND Internal Medicine Hematology & Oncology
DX: M81.0 Age-related osteoporosis without current pathological fracture (principal); S82.90XA Unspecified fracture of unspecified lower leg, initial encounter for closed fracture; C50.919 Malignant neoplasm of unspecified site of unspecified female breast; Z78.0 Asymptomatic menopausal state
CPT/HCPCS: 77080

== ENCOUNTER → 2019-03-14 | Outpatient (CLI) | payer MEDICARE, MEDICAID ==
[~2019-03-14] MED LIST changes: +BARIUM SUSPENSION 2.1% (VANILLA SILQ) 450 ML PO ONE; +HOLD METFORMIN - RECEIVED CONTRAST 20 ML VIAL IV SCH; +IOHEXOL 350 MG/ML 100 ML (OMNIPAQUE 350) VIAL IV ONE; +NS 100 ML (IVPB) BAG IV ONE
[2019-03-14 08:29] LABS: BASOPHILS % (AUTO) 2 % (0-10); EOSINOPHILS % (AUTO) 2 % (0-10); HEMATOCRIT 40 % (35-52); HEMOGLOBIN 13.1 G/DL (11.5-16.0); LYMPHOCYTES # (AUTO) 0.6 X 10^3 (1.0-4.0); LYMPHOCYTES % (AUTO) 28 % (12-44); MEAN CORPUSCULAR HEMOGLOBIN 30 PG (25-34); MEAN CORPUSCULAR HGB CONC 33 G/DL (32-36); MEAN CORPUSCULAR VOLUME 91 FL (80-99); MEAN PLATELET VOLUME 10.6 FL (7.4-10.4); MONOCYTES # (AUTO) 0.1 X 10^3 (0.0-1.0); MONOCYTES % (AUTO) 3 % (0-12); NEUTROPHILS # (AUTO) 1.3 X 10^3 (1.8-7.8); NEUTROPHILS % (AUTO) 65 % (42-75); PLATELET COUNT 79 10^3/uL (130-400)
[2019-03-14 08:39] LABS: BUN/CREATININE RATIO 6; CALCIUM 9.1 MG/DL (8.5-10.1); CARBON DIOXIDE 27 MMOL/L (21-32); CHLORIDE 100 MMOL/L (98-107); CREATININE SERUM 0.69 MG/DL (0.60-1.30); GFR ESTIMATED > 60; GLUCOSE 108 MG/DL (70-105); SODIUM 137 MMOL/L (135-145)
--- NOTE | 2019-03-14 09:17 | Diagnostic Imaging Report ---
PROCEDURE: CT chest with contrast, CT abdomen and pelvis with and without contrast. TECHNIQUE: Pre and post intravenous contrast axial imaging of the abdomen and pelvis and post contrast axial imaging of the chest were performed. Auto Exposure Controls were utilized during the CT exam to meet ALARA standards for radiation dose reduction. INDICATION: Breast cancer. COMPARISON: 12/19/2018. CT chest: The heart size is within normal limits. No pericardial effusion is present. There is calcified aortic and coronary atherosclerotic plaque without evidence of aneurysm. There is no mediastinal, hilar, or axillary lymphadenopathy. The lung windows demonstrate no pulmonary nodules or masses. Focal subpleural reticular opacities are seen in the anterior-inferior left upper lobe. There are no focal areas of consolidation. No pneumothoraces are present. No central endobronchial obstructing lesions are identified. There are no pleural effusions. The osseous structures demonstrate degenerative changes without focal lytic or blastic lesions. Old healed fractures are noted in the left ribs. CT abdomen: The liver, spleen, pancreas, adrenal glands, and kidneys have a normal appearance. There is no pathologically enlarged mesenteric or retroperitoneal adenopathy. The bowel loops are nondilated. Diverticulosis of the colon is seen without evidence of acute diverticulitis. There is no free fluid or free air. A mixed density focal lesion is seen in the right ilium adjacent to the right SI joint measuring 2.5 x 1.8 cm (image 198 series 3). Surgical hardware is noted in the proximal right femur. Old fracture is noted in the right transverse process of L3. There is calcified aortic and iliac atherosclerotic plaque without evidence of aneurysm. Ureters and bladder are grossly normal. The bladder is mildly distended. There is no free air, loculated collection, or adenopathy in the pelvis. IMPRESSION: 1. Mixed density lesion in the right ilium adjacent to the right SI joint measuring 2.5 x 1.8 cm. This may represent a metastatic lesion given the history of breast cancer. Consider bone scan to further evaluate. 2. Focal subpleural reticular opacities in the anterior-inferior left upper lobe, which may represent posttreatment changes. No suspicious pulmonary mass or nodule. 3. No pathologically enlarged lymphadenopathy in the chest, abdomen and pelvis. 4. Diverticulosis without evidence of acute diverticulitis. Dictated by: Dictated on workstation # [id number]
== END ==
LOC: RAD 07:56
PROVIDERS: ATTEND Internal Medicine Hematology & Oncology
DX: K57.30 Diverticulosis of large intestine without perforation or abscess without bleeding (principal); C50.919 Malignant neoplasm of unspecified site of unspecified female breast
CPT/HCPCS: 36415; 71260; 74178; 80048; 85025

== ENCOUNTER → 2019-04-08 | Outpatient (CLI) | payer OTHER, MEDICAID ==
[~2019-04-08] MED LIST changes: -BARIUM SUSPENSION 2.1% (VANILLA SILQ) 450 ML PO ONE; -HOLD METFORMIN - RECEIVED CONTRAST 20 ML VIAL IV SCH; -IOHEXOL 350 MG/ML 100 ML (OMNIPAQUE 350) VIAL IV ONE; -NS 100 ML (IVPB) BAG IV ONE
[2019-04-08 09:47] LABS: BILIRUBIN,URINE NEGATIVE (NEGATIVE); CLARITY,URINE CLEAR; COLOR,URINE YELLOW; GLUCOSE, URINE (UA) NEGATIVE (NEGATIVE); KETONES,URINE NEGATIVE (NEGATIVE); LEUKOCYTE ESTERASE ,URINE 2+ (NEGATIVE); NITRITE,URINE POSITIVE (NEGATIVE); PH,URINE 6.5 (5-9); PROTEIN,URINE NEGATIVE (NEGATIVE)
[2019-04-08 09:48] LABS: HEMATOCRIT 40 % (35-52); HEMOGLOBIN 13.4 G/DL (11.5-16.0); LYMPHOCYTES % (AUTO) 28 % (12-44); MEAN CORPUSCULAR HEMOGLOBIN 32 PG (25-34); MEAN CORPUSCULAR HGB CONC 34 G/DL (32-36); MEAN CORPUSCULAR VOLUME 93 FL (80-99); MEAN PLATELET VOLUME 11.1 FL (7.4-10.4); NEUTROPHILS % (AUTO) 55 % (42-75); PLATELET COUNT 106 10^3/uL (130-400); RED CELL DISTRIBUTION WIDTH 19.6 % (10.0-14.5); WHITE BLOOD COUNT 2.2 10^3/uL (4.3-11.0)
[2019-04-08 09:49] LABS: BASOPHILS # (AUTO) 0.1 10^3/uL (0.0-0.1); BASOPHILS % (AUTO) 4 % (0-10); EOSINOPHILS % (AUTO) 1 % (0-10); LYMPHOCYTES # (AUTO) 0.6 X 10^3 (1.0-4.0); MONOCYTES # (AUTO) 0.3 X 10^3 (0.0-1.0); MONOCYTES % (AUTO) 13 % (0-12); NEUTROPHILS # (AUTO) 1.2 X 10^3 (1.8-7.8)
[2019-04-08 09:57] LABS: BACTERIA,URINE MODERATE /HPF; RBC,URINE RARE /HPF; SQUAMOUS EPITHELIAL CELL,UR RARE /HPF
[2019-04-08 10:13] LABS: BUN/CREATININE RATIO 6; CALCIUM 8.9 MG/DL (8.5-10.1); CARBON DIOXIDE 24 MMOL/L (21-32); CHLORIDE 97 MMOL/L (98-107); CREATININE SERUM 0.65 MG/DL (0.60-1.30); GFR ESTIMATED > 60; GLUCOSE 103 MG/DL (70-105); POTASSIUM 3.9 MMOL/L (3.6-5.0); SODIUM 133 MMOL/L (135-145)
[2019-04-08 10:19] LABS: NEUTROPHILS % (MANUAL) 55 %
[2019-04-08 10:20] LABS: ANISOCYTOSIS SLIGHT; BAND NEUTROPHILS 1 %; BASOPHILS % (MANUAL) 4 %; EOSINOPHILS % (MANUAL) 2 %; LYMPHOCYTES % (MANUAL) 25 %; MONOCYTES % (MANUAL) 13 %
== END ==
LOC: LAB 09:11
PROVIDERS: ATTEND Internal Medicine Nephrology
DX: E87.1 Hypo-osmolality and hyponatremia (principal); D63.1 Anemia in chronic kidney disease; E83.39 Other disorders of phosphorus metabolism
CPT/HCPCS: 36415; 80069; 81000; 82570; 84156; 85007; 85027; 87077; 87088; 87186

== ENCOUNTER 2019-04-22 12:58 | Outpatient (RCR) | payer OTHER, MEDICAID ==
[2019-02-18 11:14] LABS: BASOPHILS % (AUTO) 0 % (0-10); EOSINOPHILS # (AUTO) 0.1 10^3/uL (0.0-0.3); EOSINOPHILS % (AUTO) 1 % (0-10); HEMATOCRIT 36 % (35-52); HEMOGLOBIN 11.8 G/DL (11.5-16.0); LYMPHOCYTES # (AUTO) 0.7 X 10^3 (1.0-4.0); LYMPHOCYTES % (AUTO) 9 % (12-44); MEAN CORPUSCULAR HEMOGLOBIN 30 PG (25-34); MEAN CORPUSCULAR HGB CONC 33 G/DL (32-36); MEAN CORPUSCULAR VOLUME 92 FL (80-99); MEAN PLATELET VOLUME 10.5 FL (7.4-10.4); MONOCYTES # (AUTO) 0.5 X 10^3 (0.0-1.0); MONOCYTES % (AUTO) 6 % (0-12); NEUTROPHILS # (AUTO) 6.4 X 10^3 (1.8-7.8); NEUTROPHILS % (AUTO) 83 % (42-75); PLATELET COUNT 169 10^3/uL (130-400); RED CELL DISTRIBUTION WIDTH 14.1 % (10.0-14.5); WHITE BLOOD COUNT 7.6 10^3/uL (4.3-11.0)
[2019-02-18 11:32] LABS: ALANINE AMINOTRANSFERASE 8 U/L (0-55); ALBUMIN 4.2 GM/DL (3.2-4.5); ALKALINE PHOSPHATASE 127 U/L (40-136); BILIRUBIN,TOTAL 0.4 MG/DL (0.1-1.0); BUN/CREATININE RATIO 7; CARBON DIOXIDE 24 MMOL/L (21-32); CHLORIDE 97 MMOL/L (98-107); CREATININE SERUM 0.58 MG/DL (0.60-1.30); GFR ESTIMATED > 60; GLUCOSE 91 MG/DL (70-105); POTASSIUM 4.6 MMOL/L (3.6-5.0); SODIUM 132 MMOL/L (135-145); TOTAL PROTEIN 6.7 GM/DL (6.4-8.2)
[2019-02-28 12:10] LABS: BASOPHILS % (AUTO) 1 % (0-10); EOSINOPHILS # (AUTO) 0.1 10^3/uL (0.0-0.3); EOSINOPHILS % (AUTO) 2 % (0-10); HEMATOCRIT 36 % (35-52); HEMOGLOBIN 11.7 G/DL (11.5-16.0); LYMPHOCYTES # (AUTO) 0.7 X 10^3 (1.0-4.0); LYMPHOCYTES % (AUTO) 19 % (12-44); MEAN CORPUSCULAR HEMOGLOBIN 30 PG (25-34); MEAN CORPUSCULAR HGB CONC 33 G/DL (32-36); MEAN CORPUSCULAR VOLUME 91 FL (80-99); MEAN PLATELET VOLUME 10.6 FL (7.4-10.4); MONOCYTES # (AUTO) 0.2 X 10^3 (0.0-1.0); MONOCYTES % (AUTO) 6 % (0-12); NEUTROPHILS # (AUTO) 2.5 X 10^3 (1.8-7.8); NEUTROPHILS % (AUTO) 73 % (42-75); PLATELET COUNT 154 10^3/uL (130-400); RED CELL DISTRIBUTION WIDTH 13.9 % (10.0-14.5); WHITE BLOOD COUNT 3.4 10^3/uL (4.3-11.0)
[2019-02-28 12:32] LABS: ALANINE AMINOTRANSFERASE 13 U/L (0-55); ALKALINE PHOSPHATASE 107 U/L (40-136); BILIRUBIN,TOTAL 0.4 MG/DL (0.1-1.0); BUN/CREATININE RATIO 7; CALCIUM 8.9 MG/DL (8.5-10.1); CARBON DIOXIDE 24 MMOL/L (21-32); CHLORIDE 97 MMOL/L (98-107); CREATININE SERUM 0.61 MG/DL (0.60-1.30); GFR ESTIMATED > 60; GLUCOSE 96 MG/DL (70-105); POTASSIUM 4.2 MMOL/L (3.6-5.0); SODIUM 132 MMOL/L (135-145); TOTAL PROTEIN 6.8 GM/DL (6.4-8.2)
[2019-03-07 10:01] LABS: BASOPHILS % (AUTO) 1 % (0-10); EOSINOPHILS % (AUTO) 1 % (0-10); HEMATOCRIT 41 % (35-52); HEMOGLOBIN 13.6 G/DL (11.5-16.0); LYMPHOCYTES # (AUTO) 0.6 X 10^3 (1.0-4.0); LYMPHOCYTES % (AUTO) 21 % (12-44); MEAN CORPUSCULAR HEMOGLOBIN 30 PG (25-34); MEAN CORPUSCULAR HGB CONC 33 G/DL (32-36); MEAN CORPUSCULAR VOLUME 91 FL (80-99); MEAN PLATELET VOLUME 10.2 FL (7.4-10.4); MONOCYTES # (AUTO) 0.2 X 10^3 (0.0-1.0); MONOCYTES % (AUTO) 5 % (0-12); NEUTROPHILS # (AUTO) 2.1 X 10^3 (1.8-7.8); NEUTROPHILS % (AUTO) 73 % (42-75); PLATELET COUNT 104 10^3/uL (130-400); RED CELL DISTRIBUTION WIDTH 15.6 % (10.0-14.5); WHITE BLOOD COUNT 2.8 10^3/uL (4.3-11.0)
[2019-03-07 10:25] LABS: ALANINE AMINOTRANSFERASE 10 U/L (0-55); ALBUMIN 4.4 GM/DL (3.2-4.5); ALKALINE PHOSPHATASE 117 U/L (40-136); BILIRUBIN,TOTAL 0.4 MG/DL (0.1-1.0); BUN/CREATININE RATIO 6; CALCIUM 9.3 MG/DL (8.5-10.1); CARBON DIOXIDE 27 MMOL/L (21-32); CHLORIDE 97 MMOL/L (98-107); GFR ESTIMATED > 60; GLUCOSE 115 MG/DL (70-105); POTASSIUM 4.1 MMOL/L (3.6-5.0); SODIUM 133 MMOL/L (135-145); TOTAL PROTEIN 7.3 GM/DL (6.4-8.2)
[2019-04-08 09:46] LABS: BASOPHILS # (AUTO) 0.1 10^3/uL (0.0-0.1); BASOPHILS % (AUTO) 4 % (0-10); EOSINOPHILS % (AUTO) 1 % (0-10); HEMATOCRIT 40 % (35-52); HEMOGLOBIN 13.4 G/DL (11.5-16.0); LYMPHOCYTES # (AUTO) 0.6 X 10^3 (1.0-4.0); LYMPHOCYTES % (AUTO) 28 % (12-44); MEAN CORPUSCULAR HEMOGLOBIN 32 PG (25-34); MEAN CORPUSCULAR HGB CONC 34 G/DL (32-36); MEAN CORPUSCULAR VOLUME 93 FL (80-99); MEAN PLATELET VOLUME 11.1 FL (7.4-10.4); MONOCYTES # (AUTO) 0.3 X 10^3 (0.0-1.0); MONOCYTES % (AUTO) 13 % (0-12); NEUTROPHILS # (AUTO) 1.2 X 10^3 (1.8-7.8); NEUTROPHILS % (AUTO) 55 % (42-75); PLATELET COUNT 106 10^3/uL (130-400); RED CELL DISTRIBUTION WIDTH 19.6 % (10.0-14.5); WHITE BLOOD COUNT 2.2 10^3/uL (4.3-11.0)
[2019-04-08 10:05] LABS: ALANINE AMINOTRANSFERASE 11 U/L (0-55); ALKALINE PHOSPHATASE 100 U/L (40-136); BILIRUBIN,TOTAL 0.3 MG/DL (0.1-1.0); BUN/CREATININE RATIO 6; CALCIUM 8.9 MG/DL (8.5-10.1); CARBON DIOXIDE 24 MMOL/L (21-32); CHLORIDE 97 MMOL/L (98-107); CREATININE SERUM 0.65 MG/DL (0.60-1.30); GFR ESTIMATED > 60; GLUCOSE 103 MG/DL (70-105); POTASSIUM 3.9 MMOL/L (3.6-5.0); SODIUM 133 MMOL/L (135-145); TOTAL PROTEIN 6.7 GM/DL (6.4-8.2)
[~2019-04-22 12:58] MED LIST changes: +FULVESTRANT 250 MG/5 ML SYR (CANCER CENTER) IM SCH
[2019-04-22 13:12] LABS: BASOPHILS # (AUTO) 0.1 10^3/uL (0.0-0.1); BASOPHILS % (AUTO) 2 % (0-10); EOSINOPHILS % (AUTO) 0 % (0-10); HEMATOCRIT 40 % (35-52); HEMOGLOBIN 13.8 G/DL (11.5-16.0); LYMPHOCYTES # (AUTO) 0.6 X 10^3 (1.0-4.0); LYMPHOCYTES % (AUTO) 19 % (12-44); MEAN CORPUSCULAR HEMOGLOBIN 33 PG (25-34); MEAN CORPUSCULAR HGB CONC 35 G/DL (32-36); MEAN CORPUSCULAR VOLUME 94 FL (80-99); MONOCYTES # (AUTO) 0.2 X 10^3 (0.0-1.0); MONOCYTES % (AUTO) 7 % (0-12); NEUTROPHILS # (AUTO) 2.2 X 10^3 (1.8-7.8); NEUTROPHILS % (AUTO) 72 % (42-75); PLATELET COUNT 144 10^3/uL (130-400); RED CELL DISTRIBUTION WIDTH 20.8 % (10.0-14.5)
[2019-04-22 13:32] LABS: ALANINE AMINOTRANSFERASE 21 U/L (0-55); ALBUMIN 4.6 GM/DL (3.2-4.5); ALKALINE PHOSPHATASE 111 U/L (40-136); BILIRUBIN,TOTAL 0.4 MG/DL (0.1-1.0); BUN/CREATININE RATIO 7; CALCIUM 9.4 MG/DL (8.5-10.1); CARBON DIOXIDE 28 MMOL/L (21-32); CHLORIDE 93 MMOL/L (98-107); GFR ESTIMATED > 60; GLUCOSE 107 MG/DL (70-105); POTASSIUM 3.9 MMOL/L (3.6-5.0); SODIUM 133 MMOL/L (135-145); TOTAL PROTEIN 7.4 GM/DL (6.4-8.2)
== END 2019-05-19 | disposition home or self-care (01) ==
LOC: ONC 12:58
PROVIDERS: ATTEND Internal Medicine Hematology & Oncology
DX: C50.919 Malignant neoplasm of unspecified site of unspecified female breast (principal); S82.90XA Unspecified fracture of unspecified lower leg, initial encounter for closed fracture; Z87.891 Personal history of nicotine dependence
CPT/HCPCS: 36415; 80053; 85025; 96402; 99213; 99214

== ENCOUNTER → 2019-06-21 | Outpatient (CLI) | payer MEDICARE, MEDICAID ==
[~2019-06-21] MED LIST changes: -FULVESTRANT 250 MG/5 ML SYR (CANCER CENTER) IM SCH
--- NOTE | 2019-06-21 12:53 | Diagnostic Imaging Report ---
INDICATION: Breast carcinoma with bone metastases. Patient also has squamous cell carcinoma of the tongue. Patient is performed for restaging. TECHNIQUE: Serum blood glucose level at the time of injection is 112 mg/dL. Patient was administered 13.8 mCi F-18 FDG intravenously in the right antecubital location and PET imaging was performed from top of the skull through mid thighs. Noncontrast CT was also performed for attenuation correction and anatomic correlation. All CT scans use one or more of the following dose optimizing techniques: automated exposure control, MA and/or KvP adjustment based on a patient size and exam type, or iterative reconstruction. COMPARISON: Correlation is made with outside PET study from 12/17/2018 as well as conventional CT chest, abdomen, and pelvis study from 03/14/2019. FINDINGS: The visualized intracranial structures appear to show symmetric hypermetabolism. Soft tissues of the neck are unremarkable. There is a mildly hypermetabolic focus in the upper sternum with SUV max of approximately 3.3. This corresponds to a lytic lesion at this location. This has a similar appearance to prior PET study. No hypermetabolic foci within the gayle or mediastinum are seen. There is no hypermetabolic pulmonary parenchymal abnormalities. Reticular nodular opacities in the anterior aspect of the left upper lobe appear similar to prior PET/CT study and again may be post therapeutic. Imaging through the abdomen and pelvis does show physiologic activity within the GI and tracts. There is a hypermetabolic mixed sclerotic and lytic lesion of the right iliac bone with SUV max of approximately 4. This is similar in appearance to prior PET/CT. No additional osseous lesions are seen. IMPRESSION: Overall, similar PET/CT study when compared with outside exam from 12/17/2018. Mildly hypermetabolic lesions within the upper sternum and right iliac bone are again noted. No new abnormality is detected. No suspicious hypermetabolism in the neck and specifically at the base of the tongue is identified. Dictated by: Dictated on workstation # [id number]
== END ==
LOC: RAD 08:04
PROVIDERS: ATTEND Internal Medicine Hematology & Oncology
DX: C50.919 Malignant neoplasm of unspecified site of unspecified female breast (principal); C02.9 Malignant neoplasm of tongue, unspecified; C79.51 Secondary malignant neoplasm of bone

== ENCOUNTER 2019-06-24 10:07 | Outpatient (RCR) | payer OTHER, MEDICAID ==
[2019-05-20 10:23] LABS: BASOPHILS # (AUTO) 0.1 10^3/uL (0.0-0.1); BASOPHILS % (AUTO) 2 % (0-10); EOSINOPHILS % (AUTO) 0 % (0-10); HEMATOCRIT 42 % (35-52); HEMOGLOBIN 15.2 G/DL (11.5-16.0); LYMPHOCYTES # (AUTO) 0.6 X 10^3 (1.0-4.0); LYMPHOCYTES % (AUTO) 22 % (12-44); MEAN CORPUSCULAR HEMOGLOBIN 37 PG (25-34); MEAN CORPUSCULAR HGB CONC 36 G/DL (32-36); MEAN CORPUSCULAR VOLUME 102 FL (80-99); MEAN PLATELET VOLUME 9.8 FL (7.4-10.4); MONOCYTES # (AUTO) 0.3 X 10^3 (0.0-1.0); MONOCYTES % (AUTO) 10 % (0-12); NEUTROPHILS # (AUTO) 1.8 X 10^3 (1.8-7.8); NEUTROPHILS % (AUTO) 66 % (42-75); PLATELET COUNT 119 10^3/uL (130-400); RED CELL DISTRIBUTION WIDTH 17.5 % (10.0-14.5); WHITE BLOOD COUNT 2.7 10^3/uL (4.3-11.0)
[2019-05-20 10:45] LABS: ALANINE AMINOTRANSFERASE 29 U/L (0-55); ALBUMIN 4.5 GM/DL (3.2-4.5); ALKALINE PHOSPHATASE 114 U/L (40-136); BUN/CREATININE RATIO 4; CALCIUM 9.5 MG/DL (8.5-10.1); CARBON DIOXIDE 25 MMOL/L (21-32); CHLORIDE 93 MMOL/L (98-107); CREATININE SERUM 0.69 MG/DL (0.60-1.30); GFR ESTIMATED > 60; GLUCOSE 110 MG/DL (70-105); POTASSIUM 3.7 MMOL/L (3.6-5.0); SODIUM 132 MMOL/L (135-145); TOTAL PROTEIN 7.2 GM/DL (6.4-8.2)
[~2019-06-24 10:07] MED LIST changes: +FULVESTRANT 250 MG/5 ML SYR (CANCER CENTER) IM SCH
[2019-06-24 10:49] LABS: BASOPHILS # (AUTO) 0.1 10^3/uL (0.0-0.1); BASOPHILS % (AUTO) 3 % (0-10); EOSINOPHILS % (AUTO) 1 % (0-10); HEMATOCRIT 38 % (35-52); HEMOGLOBIN 14.4 G/DL (11.5-16.0); LYMPHOCYTES # (AUTO) 0.5 X 10^3 (1.0-4.0); LYMPHOCYTES % (AUTO) 29 % (12-44); MEAN CORPUSCULAR HEMOGLOBIN 40 PG (25-34); MEAN CORPUSCULAR HGB CONC 38 G/DL (32-36); MEAN CORPUSCULAR VOLUME 105 FL (80-99); MEAN PLATELET VOLUME 10.9 FL (7.4-10.4); MONOCYTES # (AUTO) 0.1 X 10^3 (0.0-1.0); MONOCYTES % (AUTO) 6 % (0-12); NEUTROPHILS # (AUTO) 1.1 X 10^3 (1.8-7.8); NEUTROPHILS % (AUTO) 61 % (42-75); PLATELET COUNT 90 10^3/uL (130-400); RED CELL DISTRIBUTION WIDTH 12.4 % (10.0-14.5); WHITE BLOOD COUNT 1.7 10^3/uL (4.3-11.0)
[2019-06-24 11:13] LABS: ALANINE AMINOTRANSFERASE 35 U/L (0-55); ALBUMIN 4.2 GM/DL (3.2-4.5); ALKALINE PHOSPHATASE 106 U/L (40-136); BUN/CREATININE RATIO 5; CALCIUM 8.7 MG/DL (8.5-10.1); CARBON DIOXIDE 25 MMOL/L (21-32); CHLORIDE 92 MMOL/L (98-107); CREATININE SERUM 0.65 MG/DL (0.60-1.30); GFR ESTIMATED > 60; GLUCOSE 93 MG/DL (70-105); POTASSIUM 3.6 MMOL/L (3.6-5.0); SODIUM 131 MMOL/L (135-145); TOTAL PROTEIN 6.8 GM/DL (6.4-8.2)
== END 2019-07-20 16:36 | disposition home or self-care (01) ==
LOC: ONC 10:07
PROVIDERS: ATTEND Internal Medicine Hematology & Oncology
DX: C50.919 Malignant neoplasm of unspecified site of unspecified female breast (principal); S82.90XA Unspecified fracture of unspecified lower leg, initial encounter for closed fracture; Z87.891 Personal history of nicotine dependence
CPT/HCPCS: 80053; 85025; 96402

== ENCOUNTER 2019-08-22 13:06 | Outpatient (RCR) | payer OTHER, MEDICAID ==
[2019-07-22 10:09] LABS: BASOPHILS % (AUTO) 0 % (0-10); EOSINOPHILS % (AUTO) 0 % (0-10); HEMATOCRIT 40 % (35-52); HEMOGLOBIN 14.5 G/DL (11.5-16.0); LYMPHOCYTES # (AUTO) 0.5 X 10^3 (1.0-4.0); LYMPHOCYTES % (AUTO) 15 % (12-44); MEAN CORPUSCULAR HEMOGLOBIN 39 PG (25-34); MEAN CORPUSCULAR HGB CONC 36 G/DL (32-36); MEAN CORPUSCULAR VOLUME 109 FL (80-99); MEAN PLATELET VOLUME 10.7 FL (7.4-10.4); MONOCYTES # (AUTO) 0.2 X 10^3 (0.0-1.0); MONOCYTES % (AUTO) 7 % (0-12); NEUTROPHILS # (AUTO) 2.4 X 10^3 (1.8-7.8); NEUTROPHILS % (AUTO) 78 % (42-75); PLATELET COUNT 69 10^3/uL (130-400); RED CELL DISTRIBUTION WIDTH 12.9 % (10.0-14.5)
[2019-07-22 10:22] LABS: ALANINE AMINOTRANSFERASE 27 U/L (0-55); ALBUMIN 3.8 GM/DL (3.2-4.5); ALKALINE PHOSPHATASE 123 U/L (40-136); BILIRUBIN,TOTAL 1.3 MG/DL (0.1-1.0); BUN/CREATININE RATIO 3; CALCIUM 8.8 MG/DL (8.5-10.1); CARBON DIOXIDE 24 MMOL/L (21-32); CHLORIDE 93 MMOL/L (98-107); CREATININE SERUM 0.63 MG/DL (0.60-1.30); GFR ESTIMATED > 60; GLUCOSE 105 MG/DL (70-105); POTASSIUM 3.8 MMOL/L (3.6-5.0); SODIUM 130 MMOL/L (135-145); TOTAL PROTEIN 6.7 GM/DL (6.4-8.2)
[2019-08-09 11:31] LABS: BASOPHILS % (AUTO) 1 % (0-10); EOSINOPHILS % (AUTO) 0 % (0-10); HEMATOCRIT 39 % (35-52); HEMOGLOBIN 13.8 G/DL (11.5-16.0); LYMPHOCYTES # (AUTO) 0.3 X 10^3 (1.0-4.0); LYMPHOCYTES % (AUTO) 7 % (12-44); MEAN CORPUSCULAR HEMOGLOBIN 38 PG (25-34); MEAN CORPUSCULAR HGB CONC 36 G/DL (32-36); MEAN CORPUSCULAR VOLUME 107 FL (80-99); MEAN PLATELET VOLUME 10.6 FL (7.4-10.4); MONOCYTES # (AUTO) 0.7 X 10^3 (0.0-1.0); MONOCYTES % (AUTO) 16 % (0-12); NEUTROPHILS # (AUTO) 3.6 X 10^3 (1.8-7.8); NEUTROPHILS % (AUTO) 77 % (42-75); PLATELET COUNT 84 10^3/uL (130-400); RED CELL DISTRIBUTION WIDTH 12.3 % (10.0-14.5); WHITE BLOOD COUNT 4.7 10^3/uL (4.3-11.0)
[~2019-08-22 13:06] MED LIST changes: +FULVESTRANT 250 MG/5 ML IM SCH; -FULVESTRANT 250 MG/5 ML SYR (CANCER CENTER) IM SCH
== END 2019-09-15 13:13 | disposition home or self-care (01) ==
LOC: ONC 13:06
PROVIDERS: ATTEND Internal Medicine Hematology & Oncology
DX: Z51.11 Encounter for antineoplastic chemotherapy (principal); C50.812 Malignant neoplasm of overlapping sites of left female breast; S72.91XA Unspecified fracture of right femur, initial encounter for closed fracture; C79.51 Secondary malignant neoplasm of bone; C79.89 Secondary malignant neoplasm of other specified sites; D75.9 Disease of blood and blood-forming organs, unspecified; E87.1 Hypo-osmolality and hyponatremia; M81.0 Age-related osteoporosis without current pathological fracture; M19.90 Unspecified osteoarthritis, unspecified site; I10 Essential (primary) hypertension; Z79.899 Other long term (current) drug therapy; Z98.890 Other specified postprocedural states; Z86.73 Personal history of transient ischemic attack (TIA), and cerebral infarction without residual deficits; Z98.51 Tubal ligation status; Z72.0 Tobacco use
CPT/HCPCS: 80053; 85025; 96401; G0463; 96402; 99213

== ENCOUNTER 2019-09-30 03:11 | Emergency (ER) | payer MEDICARE, MEDICAID ==
[~2019-09-30] VITALS: Ht 172 cm; Wt 50.0 kg
[~2019-09-30 03:11] MED LIST changes: -FULVESTRANT 250 MG/5 ML IM SCH
--- OUTSIDE RECORDS SUMMARY | 2019-09-30 03:17 | XMS REPORT | Continuity of Care Document ---
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 UNSPECIFIED 09/15/2019 RYAN GONZALEZ MD, Ot M81. 0 AGE-RELATED OSTEOPOROSIS W/O CURRENT PAT 09/15/2019 RYAN GONZALEZ MD, Ot S72.91XA UNSP FRACTURE OF RIGHT FEMUR, INIT FOR C 09/15/2019 RYAN GONZALEZ MD, Ot Z51. 11 ENCOUNTER FOR ANTINEOPLASTIC CHEMOTHERAP 09/15/2019 RYAN GONZALEZ MD, Ot Z72. 0 TOBACCO USE 09/15/2019 RYAN GONZALEZ MD, Ot Z79.899 OTHER PRISON (CURRENT) DRUG THERAPY 09/15/2019 RYAN GONZALEZ MD, Ot Z86. 73 PRSNL HX OF TIA (TIA), AND CEREB INFRC W 09/15/2019 RYAN GONZALEZ MD, Ot Z98. 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 9 DISEASE OF BLOOD AND BLOOD-FORMING ORGAN 09/15/2019 RYAN GONZALEZ MD, Ot E87. 1 HYPO-OSMOLALITY AND HYPONATREMIA 09/15/2019 RYAN GONZALEZ MD Ot I10 ESSENTIAL (PRIMARY) HYPERTENSION 09/15/2019 RYAN GONZALEZ MD, Ot M19. 90 UNSPECIFIED OSTEOARTHRITIS, UNSPECIFIED 09/15/2019 RYAN GONZALEZ MD, Ot M81. 0 AGE-RELATED OSTEOPOROSIS W/O CURRENT PAT 09/15/2019 RYAN GONZALEZ MD, Ot S72.91XA UNSP FRACTURE OF RIGHT FEMUR, INIT FOR C 09/15/2019 RYAN GONZALEZ MD, Ot Z51. 11 ENCOUNTER FOR ANTINEOPLASTIC CHEMOTHERAP 09/15/2019 RYAN GONZALEZ MD, Ot Z72. 0 TOBACCO USE 09/15/2019 RYAN GONZALEZ MD, Ot Z79.899 OTHER PRISON (CURRENT) DRUG THERAPY 09/15/2019 RYAN GONZALEZ MD, Ot Z86. 73 PRSNL HX OF TIA (TIA), AND CEREB INFRC W 09/15/2019 RYAN GONZALEZ MD, Ot Z98. 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 09/19/2019 TORI MORSE MD, Ot M81.0 AGE- RELATED OSTEOPOROSIS W/O CURRENT PAT 09/19/2019 TORI MORSE MD, Ot S82.90X A UNSP FRACTURE OF UNSP LOWER LEG, INIT FO 09/19/2019 TORI MORSE MD, Ot Z78.0 ASYMPTOMATIC MENOPAUSAL STATE 09/19/[address] MD Ot D63 .1 ANEMIA IN CHRONIC KIDNEY DISEASE 09/19/[address] MD Ot E83.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 09/19/[address] MD Ot E87 .1 HYPO-OSMOLALITY AND HYPONATREMIA 09/19/2019 TORI MORSE MD Ot 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 09/19/2019 RYAN GONZALEZ MD, Ot C79. 89 SECONDARY MALIGNANT NEOPLASM OF OTHER SP 09/19/2019 RYAN GONZALEZ MD, Ot D75. 9 DISEASE OF BLOOD AND BLOOD-FORMING ORGAN 09/19/2019 RYAN GONZALEZ MD, Ot E87. 1 HYPO-OSMOLALITY AND HYPONATREMIA 09/19/2019 RYAN GONZALEZ MD, Ot I10 ESSENTIAL (PRIMARY) HYPERTENSION 09/19/2019 RYAN GONZALEZ MD, Ot M19. 90 UNSPECIFIED OSTEOARTHRITIS, UNSPECIFIED 09/19/2019 RYAN GONZALEZ MD, Ot M81. 0 AGE-RELATED OSTEOPOROSIS W/O CURRENT PAT 09/19/2019 RYNA GONZALEZ MD, Ot S72.91XA UNSP FRACTURE OF RIGHT FEMUR, INIT FOR C 09/19/2019 RYAN GONZALEZ MD, Ot Z51. 11 ENCOUNTER FOR ANTINEOPLASTIC CHEMOTHERAP 09/19/2019 RYAN GONZALEZ MD, Ot Z72. 0 TOBACCO USE 09/19/2019 RYAN GONZALEZ MD, Ot Z79.899 OTHER PRISON (CURRENT) DRUG THERAPY 09/19/2019 RYAN GONZALEZ MD, Ot Z86. 73 PRSNL HX OF TIA (TIA), AND CEREB INFRC W 09/19/2019 RYAN GONZALEZ MD, Ot Z98. 51 TUBAL LIGATION STATUS 09/19/2019 RYAN GONZALEZ MD, Ot Z98.890 OTHER SPECIFIED POSTPROCEDURAL STATES 09/19/2019 TORI MORSE MD, Ot C50.919 MALIGNANT NEOPLASM OF UNSP SITE OF UNSPE 09/19/2019 TORI MORSE MD, Ot M81.0 AGE- RELATED OSTEOPOROSIS W/O CURRENT PAT 09/19/2019 TORI MORSE MD, Ot S82.90X A UNSP FRACTURE OF UNSP LOWER LEG, INIT FO 09/19/2019 TORI MORSE MD, Ot Z78.0 ASYMPTOMATIC MENOPAUSAL STATE 09/19/[address] MD, Ot D63 .1 ANEMIA IN CHRONIC KIDNEY DISEASE 09/19/[address] MD, Ot E83.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 09/19/[address] MD, Ot E87 .1 HYPO-OSMOLALITY AND HYPONATREMIA 09/19/2019 TORI MORSE MD Ot 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 09/19/2019 RYAN GONZALEZ MD, Ot C79. 89 SECONDARY MALIGNANT NEOPLASM OF OTHER SP 09/19/2019 RYAN GONZALEZ MD, Ot D75. 9 DISEASE OF BLOOD AND BLOOD-FORMING ORGAN 09/19/2019 RYAN GONZALEZ MD, Ot E87. 1 HYPO-OSMOLALITY AND HYPONATREMIA 09/19/2019 RYAN GONZALEZ MD, Ot I10 ESSENTIAL (PRIMARY) HYPERTENSION 09/19/2019 RYAN GONZALEZ MD, Ot M19. 90 UNSPECIFIED OSTEOARTHRITIS, UNSPECIFIED 09/19/2019 RYAN GONZALEZ MD, Ot M81. 0 AGE-RELATED OSTEOPOROSIS W/O CURRENT PAT 09/19/2019 RYAN GONZALEZ MD, Ot S72.91XA UNSP FRACTURE OF RIGHT FEMUR, INIT FOR C 09/19/2019 RYAN GONZALEZ MD Ot Z51. 11 ENCOUNTER FOR ANTINEOPLASTIC CHEMOTHERAP 09/19/2019 RYAN GONZALEZ MD Ot Z72. 0 TOBACCO USE 09/19/2019 RYAN GONZALEZ MD, Ot Z79.899 OTHER PRISON (CURRENT) DRUG THERAPY 09/19/2019 RYAN GONZALEZ MD, Ot Z86. 73 PRSNL HX OF TIA (TIA), AND CEREB INFRC W 09/19/2019 RYAN GONZALEZ MD Ot Z98. 51 TUBAL LIGATION STATUS 09/19/2019 RYAN GONZALEZ MD, Ot Z98.890 OTHER SPECIFIED POSTPROCEDURAL STATES 09/19/2019 TORI MORSE MD, Ot C50.919 MALIGNANT NEOPLASM OF UNSP SITE OF UNSPE 09/19/2019 TORI MORSE MD, Ot M81.0 AGE- RELATED OSTEOPOROSIS W/O CURRENT PAT 09/19/2019 TORI MORSE MD, Ot S82.90X A UNSP FRACTURE OF UNSP LOWER LEG, INIT FO 09/19/2019 TORI MORSE MD, Ot Z78.0 ASYMPTOMATIC MENOPAUSAL STATE 09/19/[address] MD Ot D63 .1 ANEMIA IN CHRONIC KIDNEY DISEASE 09/19/[address] MD Ot E83.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 09/19/[address] MD, Ot E87 .1 HYPO-OSMOLALITY AND HYPONATREMIA 09/19/2019 TORI MORSE MD Ot 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 09/19/2019 RYAN GONZALEZ MD, Ot C79. 89 SECONDARY MALIGNANT NEOPLASM OF OTHER SP 09/19/2019 RYAN GONZALEZ MD, Ot D75. 9 DISEASE OF BLOOD AND BLOOD-FORMING ORGAN 09/19/2019 RYAN GONZALEZ MD, Ot E87. 1 HYPO-OSMOLALITY AND HYPONATREMIA 09/19/2019 RYAN GONZALEZ MD Ot I10 ESSENTIAL (PRIMARY) HYPERTENSION 09/19/2019 RYAN GONZALEZ MD, Ot M19. 90 UNSPECIFIED OSTEOARTHRITIS, UNSPECIFIED 09/19/2019 RYAN GONZALEZ MD, Ot M81. 0 AGE-RELATED OSTEOPOROSIS W/O CURRENT PAT 09/19/2019 RYAN GONZALEZ MD, Ot S72.91XA UNSP FRACTURE OF RIGHT FEMUR, INIT FOR C 09/19/2019 RYAN GONZALEZ MD, Ot Z51. 11 ENCOUNTER FOR ANTINEOPLASTIC CHEMOTHERAP 09/19/2019 RYAN GONZALEZ MD, Ot Z72. 0 TOBACCO USE 09/19/2019 RYAN GONZALEZ MD, Ot Z79.899 OTHER EGYPTOLOGIST (CURRENT) DRUG THERAPY 09/19/2019 RYAN GONZALEZ MD, Ot Z86. 73 PRSNL HX OF TIA (TIA), AND CEREB INFRC W 09/19/2019 RYAN GONZALEZ MD, Ot Z98. 51 TUBAL LIGATION STATUS 09/19/2019 RYAN GONZALEZ MD, Ot Z98.890 OTHER SPECIFIED POSTPROCEDURAL STATES Procedures Code Description Performed By Per sri On [id number] RE POSITION R UP FEMUR WITH INTRAMED FIX, 01/03/2019 Results Test Result Range Complete blood count (CBC) with automate d white blood cell (WBC) differential - 01/03/19 01:00 Blood leukocytes automated count (number/volume) 3.6 10*3/uL 4.3-11.0 Blood erythrocytes automated count (number/volume) 3.71 10*6/uL 4.35-5.85 Venous blood hemoglobin measurement (mass/volume) 12.1 g/dL 11.5-16.0 Blood hematocrit (volume fraction) 35 % 35-52 Automated erythrocyte mean corpuscular volume 94 [ foz_us] 80-99 Automated erythrocyte mean corpuscular h emoglobin (mass per erythrocyte) 33 pg 25-34 Automated erythrocyte mean corpuscular h emoglobin concentration measurement (mass/volume) 35 g/dL 32-36 Automated erythrocyte distribution width ratio 16. 9 % 10.0- 14.5 Automated blood platelet count (count/volume) 179 10*3/uL 130-400 Automated blood platelet mean volume measurement 10.2 [foz_us] 7.4-10.4 Automated blood neutrophils/100 leukocytes 27 % 42-75 Automated blood lymphocytes/100 leukocytes 42 % 12-44 Blood monocytes/100 leukocytes 26 % 0-12 Automated blood eosinophils/100 leukocytes 2 % 0-10 Automated blood basophils/100 leukocytes 3 % 0-10 Blood neutrophils automated count (number/volume) 1.0 10*3 1.8-7.8 Blood lymphocytes automated count (number/volume) 1.5 10*3 1.0-4.0 Blood monocytes automated count (number/volume) 0. 9 10*3 0.0-1.0 Automated eosinophil count 0.1 10*3/uL 0 .0-0.3 Automated blood basophil count (count/volume) 0.1 10*3/uL 0.0-0.1 Comprehensive metabolic panel - 01/03/19 01:00 Serum or plasma sodium measurement (moles/volume) 128 mmol/L 135-145 Serum or plasma potassium measurement (moles/volume) 4.4 mmol/L 3.6-5.0 Serum or plasma chloride measurement (moles/volume) 92 mmol/L 98-107 Carbon dioxide 22 mmol/L 21-32 Serum or plasma anion gap determination (moles/volume) 14 mmol/L 5-14 Serum or plasma urea nitrogen measurement (mass/volume ) 7 mg/dL 7-18 Serum or plasma creatinine measurement (mass/volume) 0.61 mg/dL 0.60-1.30 Serum or plasma urea nitrogen/creatinine mass ratio 11 NRG Serum or plasma creatinine measurement w ith calculation of estimated glomerular filtration rate > NRG Serum or plasma glucose measurement (mass/volume) 86 mg/dL 70-105 Serum or plasma calcium measurement (mass/volume) 8.9 mg/dL 8.5-10.1 Serum or plasma total bilirubin measurement (mass/volu me) 0.2 mg/dL 0.1-1.0 Serum or plasma alkaline phosphatase may surement (enzymatic activity/volume) 79 U/L 40-136 Serum or plasma aspartate aminotransfera se measurement (enzymatic activity/volume) 41 U/L 5-34 Serum or plasma alanine aminotransferase measurement (enzymatic activity/volume) 18 U/L 0-55 Serum or plasma protein measurement (mass/volume) 8.0 g/dL 6.4-8.2 Serum or plasma albumin measurement (mass/volume) 4.4 g/dL 3.2-4.5 CALCIUM CORRECTED 8.6 mg/dL 8.5-10.1 Manual absolute plasma cell count - 12/07 01:00 Blood monocytes/100 leukocytes 27 % NRG Manual blood segmented neutrophils/100 leukocytes 30 % NRG Manual blood lymphocytes/100 leukocytes 43 % NRG Blood blasts/100 leukocytes 1 % NR G Complete urinalysis with reflex to cultu re - 01/03/19 03:15 Urine color determination YELLOW NRG Urine clarity determination CLEAR NR G Urine pH measurement by test strip 5 5-9 Specific gravity of urine by test strip 1.010 1.016-1.022 Urine protein assay by test strip, semi-quantitative NEGATIVE NEGATIVE Urine glucose detection by automated test strip NE GATIVE NEGATIVE Erythrocytes detection in urine sediment by light micr oscopy NEGATIVE NEGATIVE Urine ketones detection by automated test strip NE GATIVE NEGATIVE Urine nitrite detection by test strip NEGATIVE NEGATIVE Urine total bilirubin detection by test strip NEGA TIVE NEGATIVE Urine urobilinogen measurement by automated test strip (mass/volume) NORMAL NORMAL Urine leukocyte esterase detection by dipstick NEG ATIVE NEGATIVE Automated urine sediment erythrocyte cou nt by microscopy (number/high power field) NONE NRG Automated urine sediment leukocyte count by microscopy (number/high power field) NONE NRG Bacteria detection in urine sediment by light microsco py TRACE NRG Squamous epithelial cells detection in u rine sediment by light microscopy NONE NRG Crystals detection in urine sediment by light microsco py NONE NRG Casts detection in urine sediment by light microscopy NONE NRG Mucus detection in urine sediment by light microscopy NEGATIVE NRG Complete urinalysis with reflex to culture NO NRG Automated blood complete blood count (he mogram) panel - 01/04/19 05:47 Blood leukocytes automated count (number/volume) 4.1 10*3/uL 4.3-11.0 Blood erythrocytes automated count (number/volume) 2.59 10*6/uL 4.35-5.85 Venous blood hemoglobin measurement (mass/volume) 8.4 g/dL 11.5-16.0 Blood hematocrit (volume fraction) 25 % 35-52 Automated erythrocyte mean corpuscular volume 96 [ foz_us] 80-99 Automated erythrocyte mean corpuscular h emoglobin (mass per erythrocyte) 32 pg 25-34 Automated erythrocyte mean corpuscular h emoglobin concentration measurement (mass/volume) 34 g/dL 32-36 Automated erythrocyte distribution width ratio 16. 1 % 10.0- 14.5 Automated blood platelet count (count/volume) 134 10*3/uL 130-400 Automated blood platelet mean volume measurement 10.6 [foz_us] 7.4-10.4 Comprehensive metabolic panel - 01/04/19 05:47 Serum or plasma sodium measurement (moles/volume) 131 mmol/L 135-145 Serum or plasma potassium measurement (moles/volume) 4.2 mmol/L 3.6-5.0 Serum or plasma chloride measurement (moles/volume) 97 mmol/L 98-107 Carbon dioxide 23 mmol/L 21-32 Serum or plasma anion gap determination (moles/volume) 11 mmol/L 5-14 Serum or plasma urea nitrogen measurement (mass/volume ) 5 mg/dL 7-18 Serum or plasma creatinine measurement (mass/volume) 0.55 mg/dL 0.60-1.30 Serum or plasma urea nitrogen/creatinine mass ratio 9 NRG Serum or plasma creatinine measurement w ith calculation of estimated glomerular filtration rate > NRG Serum or plasma glucose measurement (mass/volume) 129 mg/dL 70-105 Serum or plasma calcium measurement (mass/volume) 8.5 mg/dL 8.5-10.1 Serum or plasma total bilirubin measurement (mass/volu me) 0.4 mg/dL 0.1-1.0 Serum or plasma alkaline phosphatase may surement (enzymatic activity/volume) 68 U/L 40-136 Serum or plasma aspartate aminotransfera se measurement (enzymatic activity/volume) 20 U/L 5-34 Serum or plasma alanine aminotransferase measurement (enzymatic activity/volume) 10 U/L 0-55 Serum or plasma protein measurement (mass/volume) 5.7 g/dL 6.4-8.2 Serum or plasma albumin measurement (mass/volume) 3.6 g/dL 3.2-4.5 CALCIUM CORRECTED 8.8 mg/dL 8.5-10.1 Automated blood complete blood count (he mogram) panel - 01/06/19 17:25 Blood leukocytes automated count (number/volume) 3.8 10*3/uL 4.3-11.0 Blood erythrocytes automated count (number/volume) 1.97 10*6/uL 4.35-5.85 Venous blood hemoglobin measurement (mass/volume) 6.3 g/dL 11.5-16.0 Blood hematocrit (volume fraction) 19 % 35-52 Automated erythrocyte mean corpuscular volume 98 [ foz_us] 80-99 Automated erythrocyte mean corpuscular h emoglobin (mass per erythrocyte) 32 pg 25-34 Automated erythrocyte mean corpuscular h emoglobin concentration measurement (mass/volume) 33 g/dL 32-36 Automated erythrocyte distribution width ratio 16. 1 % 10.0- 14.5 Automated blood platelet count (count/volume) 154 10*3/uL 130-400 Automated blood platelet mean volume measurement 9.9 [foz_us] 7.4-10.4 RED CELLS LEUKO REDUCED AS1 - 01/06/19 1 8:20 RED CELLS LEUKO REDUCED AS1 T RANSFUSED 01/06/192016 NRG Blood type T Indirect antibody screen [facility] - 01/06/19 18:20 WRISTBAND NUMBER [id number] NRG ABO+Rh group ABP NRG Blood group antibody screen NEGATIVE NR G Whole blood hemoglobin and hematocrit [facility] - 01/07/19 05:15 Venous blood hemoglobin measurement (mass/volume) 7.7 g/dL 11.5-16.0 Blood hematocrit (volume fraction) 23 % 35-52 Whole blood basic metabolic panel - 07/23 05:15 Serum or plasma sodium measurement (moles/volume) 131 mmol/L 135-145 Serum or plasma potassium measurement (moles/volume) 3.6 mmol/L 3.6-5.0 Serum or plasma chloride measurement (moles/volume) 95 mmol/L 98-107 Carbon dioxide 25 mmol/L 21-32 Serum or plasma anion gap determination (moles/volume) 11 mmol/L 5-14 Serum or plasma urea nitrogen measurement (mass/volume ) 7 mg/dL 7-18 Serum or plasma creatinine measurement (mass/volume) 0.52 mg/dL 0.60-1.30 Serum or plasma urea nitrogen/creatinine mass ratio 13 NRG Serum or plasma creatinine measurement w ith calculation of estimated glomerular filtration rate > NRG Serum or plasma glucose measurement (mass/volume) 106 mg/dL 70-105 Serum or plasma calcium measurement (mass/volume) 8.7 mg/dL 8.5-10.1 Automated blood complete blood count (he mogram) panel - 01/07/19 05:15 Blood leukocytes automated count (number/volume) 3.4 10*3/uL 4.3-11.0 Blood erythrocytes automated count (number/volume) 2.37 10*6/uL 4.35-5.85 Venous blood hemoglobin measurement (mass/volume) 7.6 g/dL 11.5-16.0 Blood hematocrit (volume fraction) 23 % 35-52 Automated erythrocyte mean corpuscular volume 96 [ foz_us] 80-99 Automated erythrocyte mean corpuscular h emoglobin (mass per erythrocyte) 32 pg 25-34 Automated erythrocyte mean corpuscular h emoglobin concentration measurement (mass/volume) 34 g/dL 32-36 Automated erythrocyte distribution width ratio 16. 2 % 10.0- 14.5 Automated blood platelet count (count/volume) 157 10*3/uL 130-400 Automated blood platelet mean volume measurement 10.7 [foz_us] 7.4-10.4 Complete blood count (CBC) with automate d white blood cell (WBC) differential - 04/08/19 09:35 Blood leukocytes automated count (number/volume) 2.2 10*3/uL 4.3-11.0 Blood erythrocytes automated count (number/volume) 4.25 10*6/uL 4.35-5.85 Venous blood hemoglobin measurement (mass/volume) 13.4 g/dL 11.5-16.0 Blood hematocrit (volume fraction) 40 % 35-52 Automated erythrocyte mean corpuscular volume 93 [ foz_us] 80-99 Automated erythrocyte mean corpuscular h emoglobin (mass per erythrocyte) 32 pg 25-34 Automated erythrocyte mean corpuscular h emoglobin concentration measurement (mass/volume) 34 g/dL 32-36 Automated erythrocyte distribution width ratio 19. 6 % 10.0- 14.5 Automated blood platelet count (count/volume) 106 10*3/uL 130-400 Automated blood platelet mean volume measurement 11.1 [foz_us] 7.4-10.4 Automated blood neutrophils/100 leukocytes 55 % 42-75 Automated blood lymphocytes/100 leukocytes 28 % 12-44 Blood monocytes/100 leukocytes 13 % 0-12 Automated blood eosinophils/100 leukocytes 1 % 0-10 Automated blood basophils/100 leukocytes 4 % 0-10 Blood neutrophils automated count (number/volume) 1.2 10*3 1.8-7.8 Blood lymphocytes automated count (number/volume) 0.6 10*3 1.0-4.0 Blood monocytes automated count (number/volume) 0. 3 10*3 0.0-1.0 Automated eosinophil count 0.0 10*3/uL 0 .0-0.3 Automated blood basophil count (count/volume) 0.1 10*3/uL 0.0-0.1 Complete urinalysis with reflex to cultu re - 04/08/19 09:35 Urine color determination YELLOW NRG Urine clarity determination CLEAR NR G Urine pH measurement by test strip 6.5 5-9 Specific gravity of urine by test strip 1.010 1.016-1.022 Urine protein assay by test strip, semi-quantitative NEGATIVE NEGATIVE Urine glucose detection by automated test strip NE GATIVE NEGATIVE Erythrocytes detection in urine sediment by light micr oscopy TRACE-L NEGATIVE Urine ketones detection by automated test strip NE GATIVE NEGATIVE Urine nitrite detection by test strip POSITIVE NEGATIVE Urine total bilirubin detection by test strip NEGA TIVE NEGATIVE Urine urobilinogen measurement by automated test strip (mass/volume) 0.2 mg/dL < = 1.0 Urine leukocyte esterase detection by dipstick 2+ NEGATIVE Automated urine sediment erythrocyte cou nt by microscopy (number/high power field) RARE NRG Automated urine sediment leukocyte count by microscopy (number/high power field) [HPF] NRG Bacteria detection in urine sediment by light microsco py MODERATE NRG Squamous epithelial cells detection in u rine sediment by light microscopy RARE NRG Crystals detection in urine sediment by light microsco py NONE NRG Casts detection in urine sediment by light microscopy NONE NRG Mucus detection in urine sediment by light microscopy NEGATIVE NRG Complete urinalysis with reflex to culture YES NRG Serum or plasma renal function panel (Na , K, Cl, CO2, BUN, Cr, glucose,Ca, phos, alb) - 04/08/19 09:35 Serum or plasma sodium measurement (moles/volume) 133 mmol/L 135-145 Serum or plasma potassium measurement (moles/volume) 3.9 mmol/L 3.6-5.0 Serum or plasma chloride measurement (moles/volume) 97 mmol/L 98-107 Carbon dioxide 24 mmol/L 21-32 Serum or plasma anion gap determination (moles/volume) 12 mmol/L 5-14 Serum or plasma urea nitrogen measurement (mass/volume ) 4 mg/dL 7-18 Serum or plasma creatinine measurement (mass/volume) 0.65 mg/dL 0.60-1.30 Serum or plasma urea nitrogen/creatinine mass ratio 6 NRG Serum or plasma creatinine measurement w ith calculation of estimated glomerular filtration rate > NRG Serum or plasma glucose measurement (mass/volume) 103 mg/dL 70-105 Serum or plasma calcium measurement (mass/volume) 8.9 mg/dL 8.5-10.1 Serum or plasma albumin measurement (mass/volume) 4.0 g/dL 3.2-4.5 Serum or plasma phosphate measurement (mass/volume) 4.0 mg/dL 2.3-4.7 Urine protein/creatinine mass ratio - 09:35 Urine protein measurement (mass/volume) 7 mg/dL 6-12 Urine creatinine measurement (mass/volume) 13 mg/d L 30-125 Urine protein/creatinine mass ratio 0.54 NRG Manual absolute plasma cell count - 06/23 09:35 Blood monocytes/100 leukocytes 13 % NRG Manual blood segmented neutrophils/100 leukocytes 55 % NRG Blood band neutrophils/100 leukocytes 1 % NRG Manual blood lymphocytes/100 leukocytes 25 % NRG Manual eosinophils/100 leukocytes in nose 2 % NRG Manual blood basophils/100 leukocytes 4 % NRG Blood anisocytosis detection by light microscopy S LIGHT NRG Bacterial urine culture - 04/08/19 09:35 Bacterial urine culture [id number] NRG COLONY COUNT >100,000/ML NRG FTX;REPORTABLE SUSCEPTIBILITY REPORTED 1--20, 150 9. NRG FREE TEXT ENTRY 2 ID CONFIRMED BY RML N RG Dirithromycin susceptibility test by dis k diffusion - 04/08/19 09:35 Gentamicin susceptibility test by minimum inhibitory c oncentration <= NRG Trimethoprim/sulfamethoxazole susceptibi lity test by minimum inhibitoryconcentration <= NRG Levofloxacin susceptibility test by minimum inhibitory concentration <= NRG Ampicillin susceptibility test by minimum inhibitory c oncentration 16 NRG Cefazolin susceptibility test by minimum inhibitory co ncentration 2 NRG Ceftriaxone susceptibility test by minimum inhibitory concentration <= NRG Ciprofloxacin susceptibility test by minimum inhibitor y concentration 1 NRG Meropenem susceptibility test by minimum inhibitory co ncentration <= NRG Nitrofurantoin susceptibility test by mi nimum inhibitory concentration <= NRG Amoxicillin and clavulanate potassium susc FESTUS <= NRG PDM - PAIN MGMT (PROFILE 3 WITH CONFIRMA TION) - 04/11/19 12:37 Prescribed Drug 1 Hydrocodone NRG Creatinine 7.7 mg/dL > or = 20.0 pH 4.8 4.5-9.0 Oxidant NEGATIVE mcg/mL <200 Amphetamines NEGATIVE ng/mL <500 medMATCH Amphetamines CONSISTENT NRG Benzodiazepines NEGATIVE ng/mL <100 medMATCH Benzodiazepines CONSISTENT NRG Marijuana Metabolite NEGATIVE ng/mL <20 medMATCH Marijuana Metab CONSISTENT NRG Cocaine Metabolite NEGATIVE ng/mL <150 medMATCH Cocaine Metab CONSISTENT NRG Opiates POSITIVE ng/mL <100 Oxycodone NEGATIVE ng/mL <100 medMATCH Oxycodone CONSISTENT NRG COMMENT NRG Codeine NEGATIVE ng/mL <50 medMATCH Codeine CONSISTENT NRG Hydrocodone 86 ng/mL <50 medMATCH Hydrocodone CONSISTENT NRG Hydromorphone NEGATIVE ng/mL <50 medMATCH Hydromorphone CONSISTENT NRG Morphine NEGATIVE ng/mL <50 medMATCH Morphine CONSISTENT NRG Norhydrocodone 57 ng/mL <50 medMATCH Norhydrocodone CONSISTENT NRG Specific [place] 1.008 > or = 1.003 TISSUE, SPECIMEN A - 04/14/19 14:12 A SOURCE NRG A GROSS DESCRIPTION NRG A DIAGNOSIS NRG Encounters ACCT No. Visit Date/Time Discharge Status Pt. Type Provider Facility Loc./Unit Complaint [id number] 09/26/2019 10:30:00 09/26/2019 23:59 :00 DIS Outpatient Juanjose Lopez [id number] 06/02/2019 10:53:00 06/02/2019 23:59 :00 DIS Outpatient Juanjose Lopez [id number] 05/02/2019 10:25:00 05/02/2019 23:59 :00 DIS Outpatient Juanjose Lopez [id number] 02/28/2019 10:05:00 02/28/2019 23:59: 00 DIS Outpatient Juanjose Lopez [id number] 12/27/2018 10:14:00 12/27/2018 23:59: 00 DIS Outpatient Juanjose Lopez [id number] 02/15/2019 11:20:00 02/15/2019 23:59: 59 CLS Outpatient LILLI CASTRO [facility] [id number] 04/14/2019 11:20:00 Document Registration [id number] 04/11/2019 11:40:00 Document Registration [id number] 09/19/2019 13:13:00 23:59:59 CLS Preadmit CARLOS LINARES, [facility] ONC [id number] 08/22/2019 13:06:00 13:13:00 DIS Outpatient TORI MORSE MD [facility] ONC [id number] 06/24/2019 10:07:00 16:36:00 DIS Outpatient TORI MORSE MD [facility] ONC [id number] 06/21/2019 08:04:00 23:59:59 CLS Outpatient TORI MORSE MD [facility] RAD BREAST CANCER,IMAGING S TUDY TO RESTAGE NEOPLASM [id number] 04/22/2019 12:58:00 00:01:00 DIS Outpatient LITO LINARES, TORI Peres [facility] ONC [id number] 04/08/2019 09:11:00 23:59:59 CLS Outpatient SEAMUS LINARES, FAITH Farooq [facility] LAB [id number] 03/14/2019 07:56:00 23:59:59 CLS Outpatient TORI MORSE MD, [facility] RAD BREAST CANCER [id number] 03/08/2019 12:34:00 23:59:59 CLS Outpatient TORI MORSE MD, V [facility] RAD BREAST CANCER,FRACTURE OF LEG [id number] 01/03/2019 04:15:00 14:53:00 DIS Inpatient MANUEL LINARES, KEELEY Smith [facility] 4TH FALL, RIGHT FEMUR FRATU RE [id number] 10/14/2018 09:47:00 00:01:00 DIS Outpatient MARI LINARES, NAJMA Muro [facility] ONC
--- NOTE | 2019-09-30 03:25 | ED Lower Extremity ---
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 Pt reports taking hydrocodone for the pain with minimal relief. Pt has brace applied by self on arrival. Pulse is present, mild swelling to right ankle. Nursing Sepsis Screen: No Definite Risk Source: patient Exam Limitations: no limitations History of Present Illness Date Seen by Provider: Sep 30, 2019 Time Seen by Provider: 03:11 Initial Comments Patient presents to ER by EMS from home with chief complaint that after lunch yesterday she tripped and twisted her ankle. She took a hydrocodone approximately one hour later which took care of her pain however tonight she says the pain swelling is getting worse. She put a neoprene sleeve on her right ankle. No previous history of injury to her right ankle or foot. No surgeries. She's not on blood thinner. She does have metastatic breast cancer and follows with Dr. Miles. Primary caregiver Dr. Mendieta. She has no cough fever chills shortness of breath dysuria diarrhea constipation headache nausea or vomiting. No loss of consciousness or hitting her head when she fell. Allergies and Home Medications Allergies Coded Allergies: No Known Drug Allergies (Unverified , 01/03/19) Home Medications Aspirin 81 Mg Tablet.dr, 81 MG PO DAILY, (Reported) Clopidogrel Bisulfate 75 Mg Tablet, 75 MG PO DAILY, (Reported) Fulvestrant 250 Mg/5 Ml Syringe, IM MONTHLY, (Reported) Furosemide 20 Mg Tablet, 20 MG PO DAILY, (Reported) Hydrocodone Bit/Acetaminophen 1 Ea Tablet, 1 EA PO Q4H PRN for PAIN-MODERATE Prescribed by: KEELEY JACKSON on 01/07/19 1028 Levetiracetam 500 Mg Tablet, 500 MG PO BID, (Reported) Melatonin 5 Mg Capsule, 5 MG PO HS PRN for SLEEP, (Reported) Mv-Mn/Folic Acid/Calcium/Vit K 1 Each Tablet, 1 TAB PO DAILY, (Reported) Palbociclib 125 Mg Capsule, 125 MG PO UD, (Reported) TAKES ONCE DAILY X 3 WEEKS THEN OFF 1 WEEK THEN REPEAT CURRENTLY ON HOLD Pedi Mv No.79/Ferrous Fumarate 18 Mg Tab.chew, 18 MG PO DAILY, (Reported) Sodium Chloride 1 Gm Tab, 2 GM PO BID, (Reported) TAKES 2 (1GM) TABLETS Tizanidine HCl 4 Mg Tablet, 4 MG PO TID PRN for MUSCLE SPASMS Prescribed by: KEELEY JACKSON on 01/07/19 2349 Patient Home Medication List Home Medication List Reviewed: Yes Review of Systems Constitutional: No chills, No diaphoresis EENTM: No ear discharge, No ear pain Respiratory: No cough, No short of breath Cardiovascular: No chest pain, No edema Gastrointestinal: No abdominal pain, No nausea, No vomiting Genitourinary: No discharge, No dysuria Musculoskeletal: see HPI; No back pain; joint pain Skin: No pruritus, No rash All Other Systems Reviewed Negative Unless Noted: Yes Past Ynwuxqy-Cjbtao-Kmhcvs Hx Patient Social History Alcohol Use: Occasionally Uses Alcohol Beverage of Choice: Beer Recreational Drug Use: No Smoking Status: Current Everyday Smoker Type Used: Cigarettes Recent Foreign Travel: No Contact w/Someone Who Travel: No Recent Infectious Disease Expo: No Recent Hopitalizations: No Seasonal Allergies Seasonal Allergies: No Past Medical History Appendectomy, Tubal Ligation Respiratory: No Cardiac: No Neurological: Yes TIA Genitourinary: No Gastrointestinal: No Musculoskeletal: No Endocrine: No HEENT: No Cancer: Yes Bone, Breast Psychosocial: No Integumentary: No Blood Disorders: No Family Medical History Heart Disease, Cancer, Hypertension, Other Conditions/Hx Physical Exam Vital Signs Vital Signs - First Documented 09/30/19 03:17 Temp 36.6 Pulse 81 Resp 17 B/P (MAP) 94/67 (76) Pulse Ox 98 O2 Delivery Room Air Capillary Refill : Less Than 3 Seconds Height, Weight, BMI Height: '" Weight: lbs. oz. kg; 16.00 BMI Method: General Appearance: WD/WN, mild distress HEENT: PERRL/EOMI, pharynx normal Neck: full range of motion, normal inspection Cardiovascular: normal peripheral pulses, regular rate, rhythm Respiratory: lungs clear, normal breath sounds, no respiratory distress, no accessory muscle use Ankles: bilateral ankle non-tender, bilateral ankle normal inspection, bilateral ankle normal range of motion, bilateral ankle no evidence of injury Feet: left foot non-tender, left foot normal inspection; bilateral foot normal range of motion; left foot no evidence of injury; right foot bone tenderness (first second and third metatarsals tender to palpation dorsally), right foot soft tissue tenderness, right foot swelling (1+ edema) Neurologic/Tendon: normal sensation, normal motor functions, normal tendon functions, responds to pain, no evidence tendon injury Neurologic/Psychiatric: no motor/sensory deficits, alert, normal mood/affect, oriented x 3 Skin: normal color, warm/dry Progress/Results/Core Measures Results/Orders My Orders Orders - SRIDHAR [place] Hydrocodone/Apap 5/325 Tablet (Lortab 5 (09/30/19 03:30) Foot, Right, 3 View (09/30/19 03:18) Medications Given in ED Current Medications Medications Dose Ordered Sig/Michael Route Start Time Stop Time Status Last Admin Dose Admin Acetaminophen/ Hydrocodone Bitart 1 tab ONCE ONCE PO 09/30/19 03:30 09/30/19 03:31 DC 09/30/19 03:25 1 TAB Vital Signs/I&O 09/30/19 03:17 Temp 36.6 Pulse 81 Resp 17 B/P (MAP) 94/67 (76) Pulse Ox 98 O2 Delivery Room Air Blood Pressure Mean: 76 Progress Progress Note : Time: 03:25 Progress Note Hydrocodone and right foot x-rays. Ice pack. Diagnostic Imaging Diagonstic Imaging: Xray Plain Films/CT/US/NM/MRI: other (foot) Comments NAME: TOÑO VILLA [facility] REC#: [id number] PT STATUS: REG ER : 1960 PHYSICIAN: SRIDHAR [place] MD ADMIT DATE: 09/30/19/ER Signed Date of Exam:09/30/19 FOOT, RIGHT, 3 VIEW Indication: Right foot pain 3 views the right foot show degenerative changes of the 1st MTP joint. There is no acute fracture or dislocation. IMPRESSION: Degenerative changes 1st MTP joint with mild hallux valgus deformity. No acute abnormality seen. Dictated by: Dictated on workstation # [id number] Dict: 09/30/19606 Trans: 09/30/19608 [id number] Interpreted by: SOCORRO AUGUSTIN MD Electronically signed by: SOCORRO AUGUSTIN MD 09/30/19608 Reviewed: Reviewed by Me Departure Impression Primary Impression: Foot sprain Qualified Codes: S93.601A - Unspecified sprain of right foot, initial encounter Disposition: 01 HOME, SELF-CARE Condition: Stable Departure-Patient Inst. Decision time for Depature: 06:13 Referrals: LIZETT MENDIETA MD (PCP/Family) Primary Care Physician JAYSON MCNAMARA MD Patient Instructions: Foot Sprain (DC) Add. Discharge Instructions: Apply ice for 20 minutes every 2 hours while awake for the next 2 days to your foot. Keep the foot wrapped with an elastic bandage such as an Hamilton bandage. Keep the foot elevated when not in use. Wear the boot and weightbearing as tolerated for the next 1-2 weeks. Plan to follow up with your primary doctor or Dr. Mcnamara in 1-2 weeks if not seeing significant improvement. Hydrocodone one tablet every 6 hours as necessary for breakthrough pain. All discharge instructions reviewed with patient and/or family. Voiced understanding. Scripts Hydrocodone/Acetaminophen (Hydrocodone-Acetamin 5-325 mg) 1 Each Tablet 1 EACH PO Q6H PRN for PAIN-BREAKTHROUGH, #8 TAB 0 Refills Prov: SRIDHAR [place] 09/30/19 Copy Copies To 1: JAYSON MCNAMARA MD, TITUS J Sep 30, 2019 03:25
--- NOTE | 2019-09-30 03:28 | NUR ---
Pt assisted to bedside commode x 1.
[2019-09-30] MEDS ORDERED: HYDROcodone/APAP 5 MG/325 MG (LORTAB) TAB PO ONE (03:30)
--- NOTE | 2019-09-30 06:10 | Diagnostic Imaging Report ---
Indication: Right foot pain 3 views the right foot show degenerative changes of the 1st MTP joint. There is no acute fracture or dislocation. IMPRESSION: Degenerative changes 1st MTP joint with mild hallux valgus deformity. No acute abnormality seen. Dictated by: Dictated on workstation # [id number]
[2019-09-30] MEDS ORDERED: HYDR-83 PO (06:15)
[2019-09-30 06:19] VITALS: BP 103/71
== END 2019-09-30 06:43 | disposition home or self-care (01) ==
LOC: EDUNIT# 03:11 → ER 03:12
DX: S93.601A Unspecified sprain of right foot, initial encounter (principal); F17.210 Nicotine dependence, cigarettes, uncomplicated; Z85.3 Personal history of malignant neoplasm of breast; Z79.82 Long term (current) use of aspirin; Z79.02 Long term (current) use of antithrombotics/antiplatelets; Z86.73 Personal history of transient ischemic attack (TIA), and cerebral infarction without residual deficits; Z85.830 Personal history of malignant neoplasm of bone; Z82.49 Family history of ischemic heart disease and other diseases of the circulatory system; W01.0XXA Fall on same level from slipping, tripping and stumbling without subsequent striking against object, initial encounter; X50.1XXA Overexertion from prolonged static or awkward postures, initial encounter
CPT/HCPCS: 73630

== ENCOUNTER 2019-10-04 09:17 | Outpatient (RCR) | payer MEDICARE, MEDICAID ==
[~2019-10-04 09:17] MED LIST changes: +FULVESTRANT 250 MG/5 ML SYR (CANCER CENTER) IM SCH; +HYDR-3812 PO; -HYDR-83 PO
[2019-10-04 10:52] LABS: ALANINE AMINOTRANSFERASE 23 U/L (0-55); ALBUMIN 3.2 GM/DL (3.2-4.5); ALKALINE PHOSPHATASE 211 U/L (40-136); BILIRUBIN,TOTAL 1.2 MG/DL (0.1-1.0); BUN/CREATININE RATIO 5; CALCIUM 8.3 MG/DL (8.5-10.1); CARBON DIOXIDE 26 MMOL/L (21-32); CHLORIDE 91 MMOL/L (98-107); CREATININE SERUM 0.55 MG/DL (0.60-1.30); GFR ESTIMATED > 60; GLUCOSE 120 MG/DL (70-105); POTASSIUM 3.6 MMOL/L (3.6-5.0); SODIUM 129 MMOL/L (135-145); TOTAL PROTEIN 6.3 GM/DL (6.4-8.2)
== END 2019-10-31 15:42 | disposition home or self-care (01) ==
LOC: ONC 09:17
PROVIDERS: ATTEND Internal Medicine Hematology & Oncology
DX: Z51.11 Encounter for antineoplastic chemotherapy (principal); C50.812 Malignant neoplasm of overlapping sites of left female breast; C79.51 Secondary malignant neoplasm of bone; C79.89 Secondary malignant neoplasm of other specified sites; D75.9 Disease of blood and blood-forming organs, unspecified; E87.1 Hypo-osmolality and hyponatremia; M81.0 Age-related osteoporosis without current pathological fracture; M19.90 Unspecified osteoarthritis, unspecified site; D69.6 Thrombocytopenia, unspecified; I10 Essential (primary) hypertension; Z79.899 Other long term (current) drug therapy; Z98.890 Other specified postprocedural states; Z86.73 Personal history of transient ischemic attack (TIA), and cerebral infarction without residual deficits; Z98.51 Tubal ligation status; Z72.0 Tobacco use
CPT/HCPCS: 80053; G0463; 99213

== ENCOUNTER → 2019-10-04 | Outpatient (CLI) | payer MEDICARE, MEDICAID ==
[~2019-10-04] MED LIST changes: +HYDR-83 PO
[2019-10-04 10:25] LABS: BASOPHILS % (AUTO) 1 % (0-10); EOSINOPHILS % (AUTO) 0 % (0-10); HEMATOCRIT 34 % (35-52); HEMOGLOBIN 12.5 G/DL (11.5-16.0); LYMPHOCYTES # (AUTO) 0.3 X 10^3 (1.0-4.0); LYMPHOCYTES % (AUTO) 10 % (12-44); MEAN CORPUSCULAR HEMOGLOBIN 40 PG (25-34); MEAN CORPUSCULAR HGB CONC 37 G/DL (32-36); MEAN CORPUSCULAR VOLUME 108 FL (80-99); MEAN PLATELET VOLUME 11.9 FL (7.4-10.4); MONOCYTES # (AUTO) 0.3 X 10^3 (0.0-1.0); MONOCYTES % (AUTO) 9 % (0-12); NEUTROPHILS # (AUTO) 2.9 X 10^3 (1.8-7.8); NEUTROPHILS % (AUTO) 81 % (42-75); PLATELET COUNT 68 10^3/uL (130-400); RED CELL DISTRIBUTION WIDTH 12.9 % (10.0-14.5); WHITE BLOOD COUNT 3.6 10^3/uL (4.3-11.0)
[2019-10-04 10:49] LABS: BILIRUBIN,URINE NEGATIVE (NEGATIVE); CLARITY,URINE CLEAR; COLOR,URINE YELLOW; GLUCOSE, URINE (UA) NEGATIVE (NEGATIVE); KETONES,URINE NEGATIVE (NEGATIVE); LEUKOCYTE ESTERASE ,URINE 2+ (NEGATIVE); NITRITE,URINE POSITIVE (NEGATIVE); PROTEIN,URINE NEGATIVE (NEGATIVE)
[2019-10-04 10:54] LABS: ALBUMIN 3.1 GM/DL (3.2-4.5); BUN/CREATININE RATIO 5; CALCIUM 8.3 MG/DL (8.5-10.1); CARBON DIOXIDE 27 MMOL/L (21-32); CHLORIDE 91 MMOL/L (98-107); CREATININE SERUM 0.56 MG/DL (0.60-1.30); GFR ESTIMATED > 60; GLUCOSE 121 MG/DL (70-105); MAGNESIUM 1.9 MG/DL (1.6-2.4); PHOSPHORUS 3.4 MG/DL (2.3-4.7); POTASSIUM 3.6 MMOL/L (3.6-5.0); SODIUM 128 MMOL/L (135-145); URIC ACID 4.7 MG/DL (2.6-7.2)
[2019-10-04 11:02] LABS: BACTERIA,URINE LARGE /HPF; SQUAMOUS EPITHELIAL CELL,UR RARE /HPF
== END ==
LOC: LAB 09:56
PROVIDERS: ATTEND Internal Medicine Nephrology
DX: E87.1 Hypo-osmolality and hyponatremia (principal); E21.1 Secondary hyperparathyroidism, not elsewhere classified; C50.312 Malignant neoplasm of lower-inner quadrant of left female breast; I10 Essential (primary) hypertension; N30.00 Acute cystitis without hematuria
CPT/HCPCS: 36415; 80069; 81000; 82570; 83735; 83930; 83935; 84156; 84300; 84550; 85025; 87077; 87088; 87186

== ENCOUNTER 2019-11-01 09:54 | Outpatient (RCR) | payer MEDICARE, MEDICAID ==
[~2019-11-01 09:54] MED LIST changes: +ACHD5005 PO; +ASPI-1238 PO; -ASPI-983 PO; -FULVESTRANT 250 MG/5 ML SYR (CANCER CENTER) IM SCH; -HYDR-3812 PO
[2019-11-01 09:58] LABS: BASOPHILS % (AUTO) 2 % (0-10); EOSINOPHILS % (AUTO) 0 % (0-10); HEMATOCRIT 34 % (35-52); HEMOGLOBIN 12.4 G/DL (11.5-16.0); LYMPHOCYTES # (AUTO) 0.4 X 10^3 (1.0-4.0); LYMPHOCYTES % (AUTO) 15 % (12-44); MEAN CORPUSCULAR HEMOGLOBIN 38 PG (25-34); MEAN CORPUSCULAR HGB CONC 36 G/DL (32-36); MEAN CORPUSCULAR VOLUME 105 FL (80-99); MEAN PLATELET VOLUME 11.8 FL (7.4-10.4); MONOCYTES # (AUTO) 0.2 X 10^3 (0.0-1.0); MONOCYTES % (AUTO) 8 % (0-12); NEUTROPHILS % (AUTO) 76 % (42-75); PLATELET COUNT 55 10^3/uL (130-400); WHITE BLOOD COUNT 2.7 10^3/uL (4.3-11.0)
[2019-11-01 10:21] LABS: ALANINE AMINOTRANSFERASE 13 U/L (0-55); ALKALINE PHOSPHATASE 187 U/L (40-136); BUN/CREATININE RATIO 8; CALCIUM 8.5 MG/DL (8.5-10.1); CARBON DIOXIDE 25 MMOL/L (21-32); CHLORIDE 90 MMOL/L (98-107); GFR ESTIMATED > 60; GLUCOSE 103 MG/DL (70-105); SODIUM 130 MMOL/L (135-145); TOTAL PROTEIN 6.1 GM/DL (6.4-8.2)
== END 2019-12-30 08:00 | disposition home or self-care (01) ==
LOC: ONC 09:54
PROVIDERS: ATTEND Internal Medicine Hematology & Oncology
DX: D05.12 Intraductal carcinoma in situ of left breast (principal); C79.51 Secondary malignant neoplasm of bone; Z85.810 Personal history of malignant neoplasm of tongue
CPT/HCPCS: 80053; 85025; 86300; G0463; 99213